=== PATIENT | female | born 1985 | race Caucasian/White ===

== ENCOUNTER 2016-09-02 15:37 | Emergency (ER) | payer OTHER ==
[2016-09-02 15:49] VITALS: BP 135/72; PULSE 86; TEMP 98; BMI 27.4
--- NOTE | 2016-09-02 16:01 | PDOC ---
History of Present Illness - General Chief Complaint: Back Pain Stated Complaint: RT ARM PAIN Time Seen by Provider: 09/02/16 15:56 History Source: Patient - History of Present Illness Occurred: reports: other Severity: reports: severe Upper Extremity Pain Location: right: arm, shoulder Past History - Past Medical History Allergies/Adverse Reactions: Allergies Allergy/AdvReac Type Severity Reaction Status Date / Time No Known Allergies Allergy Verified 09/02/16 15:46 Home Medications: Ambulatory Orders Tramadol HCl 50 mg PO Q6H #12 tablet MDD 200 mg 09/02/16 HTN: Yes (Borderline) HIV: Yes - Psycho/Social/Smoking Cessation Hx Anxiety: No Suicidal Ideation: No Smoking History: Unknown if ever smoked Have you smoked in the past 12 months: No Number of Cigarettes Smoked Daily: 6 Cigars Per Day: 0 Information on smoking cessation initiated: No 'Breaking Loose' booklet given: 04/21/16 Hx Alcohol Use: No Drug/Substance Use Hx: No Substance Use Type: None Review of Systems - Review of Systems Constitutional: No: Chills, Fever Respiratory: No: Shortness of Breath Cardiac (ROS): Yes: Chest Pain. No: Palpitations Integumentary: No: Erythema *Physical Exam - Vital Signs Last Vital Signs Temp Pulse Resp BP Pulse Ox 98 F 86 18 135/72 100 09/02/16 15:46 09/02/16 15:46 09/02/16 15:46 09/02/16 15:46 09/02/16 15:46 - Physical Exam General Appearance: Yes: Appropriately Dressed, Moderate Distress Neck: positive: Supple Respiratory/Chest: positive: Chest Tender (to R upper chest), Lungs Clear, Normal Breath Sounds. negative: Respiratory Distress Cardiovascular: positive: Regular Rate, S1, S2 Extremity: positive: Tender (to volar apect of R 5th digit w/ decreased sensation that extends to distal aspect of hypothenar emeninece, unable to flex digit, no erythma/streaking) Integumentary: positive: Dry, Warm Neurologic: positive: Fully Oriented, Alert, Normal Mood/Affect ED Treatment Course - LABORATORY CBC & Chemistry Diagram: 09/02/16 16:00 Medical Decision Making - Medical Decision Making 09/02/16 16:01 30 yo F, smoker, p/w RUE pain. Pt reports that she sustained a laceration to volar aspect of R 5th digit 1 month ago but did not seek medical care as she hates hospitals. States wound healed but has had persistent pain to digit that extended to palm and wrist 2 weeks ago and now radiating to right arm and chest. Describes pain as tight and constant with an intensity of 8 out of 10. No erythema to skin and no fever or chills. Has not taken anything for pain. No trauma to arm/shoulder otherwise. Did fly back and forth to [place] last week but states CP started prior to travel. No sob, palpitations, leg pain or swelling. See exam RUE/chest pain Pt appears very uncomfortable w/ ttp to medial R arm/upper chest and LROM to RUE 2/2 pain Sustained lac to R 5th digit 1 month ago w/ e/o tendon injury on exam now ( persistent pain w/ loss of flexion and numbness, did not seek medical treatment after injury), no streaking up arm to suspect infxn at this time R shoulder/chest pain possibly MSK, possible radiation from tendon injury -pain control -labs/ekg/cxr given level of pain -reassess -anticipate discharge w/ hand f/u 09/02/16 16:40 09/02/16 16:44 09/02/16 16:56 09/02/16 17:57 Labs/ekg/cxr negative. Pt better w/ meds. Will dc w/ f/u with hand specialist *DC/Admit/Observation/Transfer Diagnosis at time of Disposition: Right arm pain - Discharge Dispostion Disposition: HOME Condition at time of disposition: Improved - Prescriptions Prescriptions: Tramadol HCl 50 mg PO Q6H #12 tablet MDD 200 mg - Referrals Referrals: Laura Mckeon MD [Primary Care Provider] - Fausto Carter MD [Staff Physician] - - Patient Instructions Printed Discharge Instructions: DI for Arm Pain Additional Instructions: The cause of your pain is either muscular or related to your tendon injury a month ago. Take medications as directed and follow-up with Dr. aCrter, of plastic surgery.
[2016-09-02] MEDS ORDERED: IBUPROFEN 400 MG TABLET (FP) PO ONE ×2 (16:26→16:47)
[2016-09-02 16:47] LABS: BASOPHIL 0.6 % (0-2.0); EOSINOPHIL 2.4 % (0-4.5); MCH 31.9 pg (25.7-33.7); MCHC 34.2 g/dl (32.0-36.0); MEAN CELL VOLUME 93.3 fl (80-96); MEAN PLT VOLUME 9.7 fl (7.5-11.1); NEUTROPHILS 48.8 % (42.8-82.8); PLATELET COUNT 188 K/MM3 (134-434); RDW 12.6 % (11.6-15.6); WHITE BLOOD COUNT 5.9 K/mm3 (4.0-10.0)
[2016-09-02 17:04] LABS: URINE APPEARANCE CLEAR; URINE BILIRUBIN NEGATIVE (NEGATIVE); URINE BLOOD NEGATIVE (NEGATIVE); URINE COLOR STRAW; URINE GLUCOSE (UA) NEGATIVE (NEGATIVE); URINE KETONE NEGATIVE (NEGATIVE); URINE LEUK ESTERASE NEGATIVE (NEGATIVE); URINE NITRITE NEGATIVE (NEGATIVE); URINE PROTEIN NEGATIVE (NEGATIVE); URINE UROBILINOGEN NEGATIVE E.U./dl (0.2-1.0)
[2016-09-02] MEDS ORDERED: traMADol HCL 50 MG TABLET ONE (17:28)
[2016-09-02] MEDS ORDERED: traMADol HCL 50 MG TABLET PO ONE (17:43)
--- NOTE | 2016-09-03 13:34 | EKG ---
Test Reason : Blood Pressure : / mmHG Vent. Rate : 068 BPM Atrial Rate : 068 BPM P-R Int : 168 ms QRS Dur : 100 ms QT Int : 402 ms P-R-T Axes : 048 036 036 degrees QTc Int : 427 ms NORMAL SINUS RHYTHM NONSPECIFIC T WAVE ABNORMALITY ABNORMAL ECG WHEN COMPARED WITH ECG OF 21-APR-2016 12:22, NO SIGNIFICANT CHANGE WAS FOUND Confirmed by GARETH MONTELONGO MD ([id number]) on 09/03/2016 1:33:36 PM Referred By: DONIS Confirmed By:GARETH MONTELONGO MD
== END 2016-09-02 17:47 | disposition home or self-care (01) ==
LOC: JERFT 15:37
DX: M79.604 Pain in right leg (principal); I10 Essential (primary) hypertension; Z22.1 Carrier of other intestinal infectious diseases
CPT/HCPCS: 36415; 71020-TC; 81003; 84703; 85025; 85379; 87491; 87591; 93005; 93010; 99281-25

== ENCOUNTER 2017-02-06 21:23 | Emergency (ER) | payer SELFPAY ==
[2017-02-06 21:30] VITALS: BP 100/77; PULSE 105; TEMP 98.5; BMI 26.5
--- NOTE | 2017-02-06 21:39 | PDOC ---
Attending Attestation - Resident Resident Name: Radha Padilla - HPI HPI: 02/07/17 00:26 Pt presents to the ED complaining of a two day history of RLQ pain. Also has vaginal spotting which started today. Denies nausea, vomiting or fever. Denies urinary complaints. - Physicial Exam PE: 02/07/17 00:28 agree with resident's exam. Patient is mildly tender to deep palpation, worse in the RUQ. - Medical Decision Making 02/07/17 00:29 Pt presents to the ED complaining of abdominal pain and vaginal spotting. Concern for bilary disease, ectopic , less likely pancreatitis. plan was to check labs and RUQ US, but patient needed to leave to care for her two year old daughter. Patient signed out AMA. understood the risks of leaving AMA , including abdominal bleeding or severe infection and .
--- NOTE | 2017-02-06 22:42 | PDOC ---
History of Present Illness - General Chief Complaint: Pain, Acute Stated Complaint: PAIN, ACUTE Time Seen by Provider: 02/06/17 21:33 History Source: Patient Exam Limitations: No Limitations - History of Present Illness Initial Comments: This is a 31 yo female with h/o HTN and 2 years ago who presents c/o right lower abdominal pain and bright red vaginal spotting. The first time she noticed this pain was actually 3 months ago and it was mild and fleeting at the time, but in the past two days has become constant and up to 10/10. She describes it as a tightness with sharper twinges of pain, radiating to the mid- back with left side worse than right, and worsening with movement and breathing. It has generally been worsening over the past two days. She additionally notes headache behind her left eye and mild shortness of breath. She denies fever, chills, nausea, vomiting, constipation, dizziness, chest pain , dysuria, vaginal discharge, or concern for STD. She has been monogamous with her of 5 years. She has taken no medications for her symptoms and has not had pain like this in the past. She denies any chance that she may be . Past History - Past Medical History Allergies/Adverse Reactions: Allergies Allergy/AdvReac Type Severity Reaction Status Date / Time No Known Allergies Allergy Verified 02/07/17 12:35 Home Medications: Ambulatory Orders NK [No Known Home Medication] 02/06/17 HTN: Yes (Borderline) HIV: Yes - Psycho/Social/Smoking Cessation Hx Anxiety: No Suicidal Ideation: No Smoking History: Current every day smoker Have you smoked in the past 12 months: Yes Number of Cigarettes Smoked Daily: 6 Cigars Per Day: 0 Information on smoking cessation initiated: No 'Breaking Loose' booklet given: 04/21/16 Hx Alcohol Use: No Drug/Substance Use Hx: No Substance Use Type: None Review of Systems - Review of Systems Constitutional: No: Chills, Fever, Unexplained wgt Loss HEENTM: No: Nose Congestion, Throat Pain Respiratory: Yes: Shortness of Breath (mild). No: Cough Cardiac (ROS): No: Chest Pain, Palpitations ABD/GI: Yes: Other (right abdominal pain). No: Constipated, Diarrhea, Nausea, Vomiting : Yes: Other (vaginal spotting). No: Burning, Dysuria Musculoskeletal: Yes: Back Pain. No: Neck Pain Integumentary: No: Bruising, Rash Neurological: Yes: Headache. No: Numbness, Tingling, Weakness, Dizziness Endocrine: No: Unexplained Weight Gain, Unexplained Weight Loss *Physical Exam - Vital Signs Last Vital Signs Temp Pulse Resp BP Pulse Ox 98.5 F 105 H 18 100/77 100 02/06/17 21:26 02/06/17 21:26 02/06/17 21:26 02/06/17 21:26 02/06/17 21:26 - Physical Exam General Appearance: Yes: Nourished, Appropriately Dressed, Mild Distress, Other (appears anxious and uncomfortable, standing and walking in exam room for the duration of the interview, pleasant and conversive and answering questions appropriately, nontoxic appearing) HEENT: positive: EOMI, Normal Voice, Hearing Grossly Normal. negative: Scleral Icterus (R), Scleral Icterus (L), Nasal Congestion Neck: positive: Trachea midline, Supple. negative: Tender, Rigid Respiratory/Chest: positive: Lungs Clear, Normal Breath Sounds. negative: Respiratory Distress, Crackles, Rhonchi, Stridor, Wheezing Cardiovascular: positive: Regular Rhythm, Regular Rate. negative: Murmur Female Pelvic Exam: positive: normal external exam, cervical os closed, normal adnexa, vaginal bleeding (small amount of bright red blood), other (on bimanual exam the patient notes increased pain to the right umbilical region and superior RLQ). negative: CMT, discharge Gastrointestinal/Abdominal: positive: Normal Bowel Sounds, Tender (right lower quadrant and right umbilical tenderness to palpation, tenderness to McBurney's point, +Rovsing sign, + Desir's sign), Soft. negative: Organomegaly, Pulsatile Mass, Guarding Musculoskeletal: positive: Normal Inspection. negative: Decreased Range of Motion, Vertebral Tenderness Extremity: positive: Normal Capillary Refill, Normal Inspection, Normal Range of Motion. negative: Tender, Cyanosis Integumentary: positive: Normal Color, Dry, Warm. 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 Exam with RLQ and RUQ ttp and pelvic without CMT, small amt of blood. DDX includes cholecystitis, pancreatitis, appendicitis, renal stone, ectopic, endometriosis, ruptures ovarian cyst. Ordered is serum preg, CBCD, CMP, lipase, cervical swab for GC chlam. Lab work unremarkable. Pt with better localization of RUQ abdominal pain on re- exam. US abdomen recommended to her but the patient states she wants to leave d/t childcare concerns. She is counseled on risks of leaving AMA and remains adamant she wants to leave. Pt signs out AMA and is counseled to return [facility] for further workup. *DC/Admit/Observation/Transfer Diagnosis at time of Disposition: Abdominal pain - Discharge Dispostion Disposition: AGAINST MEDICAL ADVICE
[2017-02-06 22:58] LABS: URINE APPEARANCE CLEAR; URINE BILIRUBIN NEGATIVE (NEGATIVE); URINE BLOOD NEGATIVE (NEGATIVE); URINE COLOR LTYELLOW; URINE GLUCOSE (UA) NEGATIVE (NEGATIVE); URINE KETONE NEGATIVE (NEGATIVE); URINE LEUK ESTERASE NEGATIVE (NEGATIVE); URINE NITRITE NEGATIVE (NEGATIVE); URINE PROTEIN NEGATIVE (NEGATIVE); URINE UROBILINOGEN NEGATIVE mg/dL (0.2-1.0)
[2017-02-06 23:22] LABS: BASOPHIL 0.8 % (0-2.0); EOSINOPHIL 3.2 % (0-4.5); MCH 32.3 pg (25.7-33.7); MCHC 34.2 g/dl (32.0-36.0); MEAN CELL VOLUME 94.5 fl (80-96); MEAN PLT VOLUME 9.3 fl (7.5-11.1); NEUTROPHILS 46.7 % (42.8-82.8); PLATELET COUNT 204 K/MM3 (134-434); RDW 12.4 % (11.6-15.6); WHITE BLOOD COUNT 7.2 K/mm3 (4.0-10.0)
[2017-02-06 23:46] LABS: ALBUMIN 4.1 g/dl (3.4-5.0); ALK PHOS 64 U/L (45-117); ANION GAP 7 (8-16); BILIRUBIN,TOTAL 0.3 mg/dL (0.2-1.0); CALCIUM 9.2 mg/dL (8.5-10.1); CO2 28 mmol/L (21-32); CREATININE 0.6 mg/dL (0.55-1.02); GLUCOSE,RANDOM 87 mg/dL (74-106); SGOT/AST 20 U/L (15-37); SGPT/ALT 35 U/L (12-78); TOT PROT 7.2 g/dl (6.4-8.2)
== END 2017-02-07 01:42 | disposition left against medical advice (07) ==
LOC: JER 21:23
DX: R10.31 Right lower quadrant pain (principal)
CPT/HCPCS: 36415; 80053; 81003; 84703; 85025; 87086; 87491; 87591; 99282-25

== ENCOUNTER 2017-02-07 12:31 | Emergency (ER) | payer SELFPAY ==
[2017-02-07 12:36] VITALS: TEMP 98.6; BMI 26.5
[2017-02-07] MEDS ORDERED: morphine CARPU-JECT 4 MG/1 ML DISP.SYRIN IVPUSH ONE (12:57)
[2017-02-07] MEDS ORDERED: ONDANSETRON 4 MG/2 ML VIAL IVPUSH ONE (12:57)
[2017-02-07] MEDS ORDERED: SODIUM CHLORIDE 1,000 ML IV STA (12:57)
[2017-02-07] MEDS ORDERED: morphine CARPU-JECT 2 MG/1 ML DISP.SYRIN ONE (13:08)
[2017-02-07] MEDS ORDERED: ONDANSETRON 4 MG/2 ML VIAL ONE (13:09)
--- NOTE | 2017-02-07 13:12 | PDOC ---
History of Present Illness - General Chief Complaint: Vaginal Bleeding Stated Complaint: VAGINAL BLEEDING, ABD PAIN, VOMITING Time Seen by Provider: 02/07/17 12:37 History Source: Patient Exam Limitations: No Limitations - History of Present Illness Initial Comments: 02/07/17 13:07 31F here today complaining of RUQ abdominal pain worsening in the past week. 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 At that visit lab work showed no white count, no abnormalities on her CMP, no anemia, no , and no UTI. Pelvic exam showed a small amount of blood, no discharge, no masses and no cervical motion tenderness. She endorses associated shortness of breath secondary to abdominal pain. She also endorses associated diarrhea, nausea, and vomiting. She denies blood in her vomit and stool. She states that the car ride was very painful, with every bump in the road causing pain. She states that she is in a monogamous relationship with her . Past History - Past Medical History Allergies/Adverse Reactions: Allergies Allergy/AdvReac Type Severity Reaction Status Date / Time No Known Allergies Allergy Verified 02/07/17 12:35 Home Medications: Ambulatory Orders NK [No Known Home Medication] 02/06/17 HTN: Yes (Borderline) HIV: Yes - Psycho/Social/Smoking Cessation Hx Anxiety: No Suicidal Ideation: No Smoking History: Current every day smoker Have you smoked in the past 12 months: Yes Number of Cigarettes Smoked Daily: 20 Cigars Per Day: 0 Information on smoking cessation initiated: Yes 'Breaking Loose' booklet given: 02/07/17 Hx Alcohol Use: No Drug/Substance Use Hx: No Substance Use Type: None Review of Systems - Review of Systems Comments:: 02/07/17 13:23 GENERAL/CONSTITUTIONAL: No fever or chills. No weakness. HEAD, EYES, EARS, NOSE AND THROAT: No change in vision. No ear pain or discharge. No sore throat. CARDIOVASCULAR: No chest pain. Positive for shortness of breath RESPIRATORY: No cough, wheezing, or hemoptysis. GASTROINTESTINAL: Positive for nausea, vomiting, and diarrhea GENITOURINARY: No dysuria, frequency, or change in urination. SKIN: No rash NEUROLOGIC: No headache, vertigo, loss of consciousness, or change in strength/ sensation. HEMATOLOGIC/LYMPHATIC: No anemia, easy bleeding, or history of blood clots. ALLERGIC/IMMUNOLOGIC: No hives or skin allergy. *Physical Exam - Vital Signs Last Vital Signs Temp Pulse Resp BP Pulse Ox 98.6 F 98 H 19 113/79 98 02/07/17 12:34 02/07/17 12:34 02/07/17 12:34 02/07/17 12:34 02/07/17 12:34 - Physical Exam Comments: 02/07/17 13:24 GENERAL: Awake, alert, and fully oriented, in moderate distress HEAD: No signs of trauma, normocephalic, atraumatic EYES: PERRLA, EOMI, sclera anicteric, conjunctiva clear ENT: Auricles normal inspection, hearing grossly normal, nares patent, oropharynx clear without exudates. Dry mucosa LUNGS: No distress, speaks full sentences, clear to auscultation bilaterally HEART: Regular rate and rhythm, normal S1 and S2, no murmurs, rubs or gallops, peripheral pulses normal and equal bilaterally. ABDOMEN: RUQ tenderness, positive rubin sign, no rebound. No guarding. No masses EXTREMITIES: Normal inspection, Normal range of motion, no edema. No clubbing or cyanosis. NEUROLOGICAL: Cranial nerves II through XII grossly intact. Normal speech, no focal sensorimotor deficits SKIN: Warm, Dry, normal turgor, no rashes or lesions noted. ED Treatment Course - RADIOLOGY Radiology Studies Ordered: Category Date Time Status ABDOMEN US -LIMITED [US] Stat Ultrasound 02/07/17 12:58 Ordered TRANSVAGINAL ULTRASOUND US [US] Stat Ultrasound 02/07/17 13:05 Ordered Medical Decision Making - Medical Decision Making 02/07/17 13:25 Patient is a 31F with history of HTN and preeclampsia here today with RUQ abdominal pain. Full laboratory workup done yesterday. Vital signs stable and normal. Differential diagnosis includes, but is not limited to: cholecystitis, cholelithiasis, choledocholithiasis, ovarian cyst, and renal colic. Believe small amounts of vaginal bleeding plus obesity and age is PCOS. No need to repeat lab work. Will do abdominal ultrasound and transvaginal ultrasound to evaluate. Will treat with 1L ns, zofran, morphine. 02/07/17 16:05 RUQ and transvaginal ultrasound shows no abnormalities. Patient still in pain, but wants to eat. Holding PO, doing CT w/ IV contrast. 02/07/17 20:59 CT shows bilateral kidney stones and hepatic steatosis. Abdominal pain improved , passed PO challenge. Given referral to PCP, told to follow up on CT results. Patient alert, ambulatory and improved. Discharged with return precautions. *DC/Admit/Observation/Transfer Diagnosis at time of Disposition: Renal colic - Discharge Dispostion Disposition: HOME Condition at time of disposition: Good Admit: No - Referrals Referrals: Colby Musa MD [Staff Physician] - - Patient Instructions Printed Discharge Instructions: Kidney Stones -- Adult
--- NOTE | 2017-02-07 13:46 | PDOC ---
Attending Attestation - Resident Resident Name: Kofi Dee - ED Attending Attestation I have performed the following: I have examined & evaluated the patient, The case was reviewed & discussed with the resident, I agree w/resident's findings & plan, Exceptions are as noted - HPI HPI: 02/07/17 13:41 25-year-old female with past medical history of hypertension presents back to the ED for abdominal pain. Patient is here with 2 complains. She was initially seen here yesterday for persistent vaginal bleeding since January 16 and right upper quadrant pain. Patient reports that she's been having intermittent right upper quadrant pain for several weeks. Unclear if it is worse with food or eating. Has developed with nausea or vomiting. Denies dysuria. Patient also reports that she's been having vaginal bleeding but no lower abdominal pain. Patient is not on oral contraceptive pills. The patient has had blood, urine and a urine test done which was negative. However, the patient left AGAINST MEDICAL ADVICE given that she had to drop her daughter off at home. Patient continued to have persistent pain and came to the ED. We'll obtain a right upper quadrant ultrasound to rule out acute cholecystitis or bili colic. We'll also obtain a transvaginal ultrasound. Differential includes fibroids versus dysfunctional uterine bleeding. If workup is negative, we'll consider spiral CT to rule out renal colic. - Physicial Exam PE: 02/08/17 11:04 GENERAL: Awake, alert, and fully oriented, in no acute distress. HEAD: No signs of trauma EYES: PERRLA, EOMI, sclera anicteric, conjunctiva clear ENT: Auricles normal inspection, hearing grossly normal, nares patent, oropharynx clear without exudates. NECK: Normal ROM, supple, no lymphadenopathy, JVD, or masses LUNGS: Breath sounds equal, clear to auscultation bilaterally. No wheezes, and no crackles HEART: Regular rate and rhythm, normal S1 and S2, no murmurs, rubs or gallops ABDOMEN: TTP RUQ. Desir sign positive. Soft, normoactive bowel sounds. No guarding, no rebound. No masses BACK: +R sided CVA tenderness EXTREMITIES: Normal range of motion, no edema. No clubbing or cyanosis. No cords, erythema, or tenderness NEUROLOGICAL: Cranial nerves II through XII grossly intact. Normal speech, normal gait SKIN: Warm, Dry, normal turgor, no rashes or lesions noted. - Medical Decision Making 02/07/17 15:39 Transvaginal ultrasound and abdominal ultrasound negative. Will reassess the patient. if the pain is improved, will d/c patient with PMD followup. Otherwise, will perform a spiral CT. Regarding the vaginal bleeding, given the negative transvaginal ultrasound, patient with likely dysfunctional uterine bleeding. Will have patient follow up with sales force administrator for potential OCPs.
[2017-02-07 19:13] VITALS: BP 131/77; PULSE 56
== END 2017-02-07 19:13 | disposition home or self-care (01) ==
LOC: JER 12:31
PROC: 3E033NZ Introduction of Analgesics, Hypnotics, Sedatives into Peripheral Vein, Percutaneous Approach (ICD-10-PCS; principal; 2017-02-07)
PROC: 3E033GC Introduction of Other Therapeutic Substance into Peripheral Vein, Percutaneous Approach (ICD-10-PCS; 2017-02-07)
DX: N20.0 Calculus of kidney (principal); I10 Essential (primary) hypertension; Z21 Asymptomatic human immunodeficiency virus [HIV] infection status
CPT/HCPCS: 74177-TC; 76705-TC; 76830-TC; 84703; 99283-25

== ENCOUNTER 2017-05-02 21:49 | Emergency (ER) | payer SELFPAY ==
[2017-05-02 22:15] VITALS: BP 128/70; PULSE 78; TEMP 98.5; BMI 27.8
--- NOTE | 2017-05-02 23:33 | PDOC ---
History of Present Illness <Sahil Guevara - Last Filed: 05/02/17 23:33> - General History Source: Patient Exam Limitations: No Limitations - History of Present Illness Initial Comments: 05/03/17 01:57 "Patient is a 31 year old female with no significant past medical history presents to the ED complaining of missed period as well as cough. She reports her last period was March 19 and lasted 4 days, and has been absent since..The patient reports an ED visit in February for her period lasting two weeks. She also complains of back pain and dry throat secondary to her cough. She denies any abdominal pain, spotting or vaginal discharge. She denies nausea, vomiting, fever, chills. She denies use of control. " <Jessie Wang - Last Filed: 05/03/17 01:58> - General Chief Complaint: Cold Symptoms Stated Complaint: FATIGUE Time Seen by Provider: 05/02/17 23:09 Past History - Past Medical History COPD: No HTN: Yes (Borderline) - Suicide/Smoking/Psychosocial Hx Smoking History: Current every day smoker Have you smoked in the past 12 months: Yes Number of Cigarettes Smoked Daily: 5 Cigars Per Day: 0 Information on smoking cessation initiated: No 'Breaking Loose' booklet given: 02/07/17 Hx Alcohol Use: No Drug/Substance Use Hx: No Substance Use Type: None <PaolaSahil - Last Filed: 05/02/17 23:33> <[email or web address] - Last Filed: 05/03/17 01:58> - Past Medical History Allergies/Adverse Reactions: Allergies Allergy/AdvReac Type Severity Reaction Status Date / Time No Known Allergies Allergy Verified 05/02/17 22:08 Home Medications: Ambulatory Orders NK [No Known Home Medication] 02/06/17 Review of Systems - Review of Systems Able to Perform ROS?: Yes Comments:: 05/03/17 01:57 "CONSTITUTIONAL: No reported: Fever, Chills, Diaphoresis, Generalized Weakness, Malaise, Loss of Appetite HEENT: No reported: Rhinorrhea, Nasal Congestion, Throat Pain, Throat Swelling, Difficulty Swallowing, Mouth Swelling, Ear Pain, Eye Pain, Visual Changes CARDIOVASCULAR: No reported: Chest Pain, Syncope, Palpitations, Irregular Heart Rate, Lightheadedness, Peripheral Edema RESPIRATORY: +Cough No reported: Shortness of Breath, SOB with Exertion, Orthopnea, Wheezing, Stridor, Hemoptysis GASTROINTESTINAL: No reported: Abdominal pain, Abdominal Distension, Nausea, Vomiting, Diarrhea, Constipation, Melena, Hematochezia GENITOURINARY: No reported: Dysuria, Frequency, Urgency, Hesitancy, Flank Pain, Genital Pain MUSCULOSKELETAL: No reported: Myalgia, Arthralgia, Joint Swelling, Neck Pain SKIN: No reported: Rash, Itching, Pallor HEMEATOLOGIC/IMMUNOLOGIC: No reported: Easy Bleeding, Easy Bruising, Lymphadenopathy, Frequent infections ENDOCRINE: No reported: Unexplained Weight Gain, Unexplained Weight Loss, Heat Intolerance , Cold Intolerance NEUROLOGIC: No reported: Headache, Focal Weakness, Paresthesias, Vertigo, Lightheadedness, Unsteady Gait, Seizure, Mental Status Changes, Incontinence PSYCHIATRIC: No reported: Anxiety, Depression " All Other Systems: Reviewed and Negative <Jessie Wang - Last Filed: 05/03/17 01:58> *Physical Exam - Vital Signs Last Vital Signs Temp Pulse Resp BP Pulse Ox 98.5 F 78 16 128/70 99 05/02/17 22:12 05/02/17 22:12 05/02/17 22:12 05/02/17 22:12 05/02/17 22:12 <Sahil Guevara - Last Filed: 05/02/17 23:33> - Vital Signs Last Vital Signs Temp Pulse Resp BP Pulse Ox 98.5 F 78 16 128/70 99 05/02/17 22:12 05/02/17 22:12 05/02/17 22:12 05/02/17 22:12 05/02/17 22:12 - Physical Exam Comments: 05/03/17 01:58 "GENERAL: The patient is awake, alert, and fully oriented, Nontoxic - in no acute distress. HEAD: Normocephalic, atraumatic. EYES: extraocular movements intact, sclera anicteric, conjunctiva clear. ENT: Normal voice, Moist mucous membranes. NECK: Normal range of motion, supple LUNGS: Breath sounds equal, clear to auscultation bilaterally. No wheezes, no rhonchi, no rales. HEART: Regular rate and rhythm, without murmur, rub or gallop. ABDOMEN: Soft, nontender, normoactive bowel sounds. No guarding, no rebound.No CVA tenderness EXTREMITIES: Normal range of motion, no edema. No clubbing or cyanosis. No cords , erythema, or tenderness. NEUROLOGICAL: No facial assymetry, Normal speech, PSYCH: Normal mood, normal affect. SKIN: Warm, Dry, normal turgor, " <Jessie Wang - Last Filed: 05/03/17 01:58> ED Treatment Course - ADDITIONAL ORDERS Additional order review: Laboratory Results 05/02/17 22:20 Urine HCG, Qual Negative <Sahil Guevara - Last Filed: 05/02/17 23:33> - ADDITIONAL ORDERS Additional order review: Laboratory Results 05/02/17 22:20 Urine HCG, Qual Negative <Jessie Wang - Last Filed: 05/03/17 01:58> Medical Decision Making - Medical Decision Making 05/02/17 23:30 31y F presents with missing her period since mar 19, no abd pain/ crapmping/back pain, vag bleeding. pt also complaining of mild dry cough an dsore throat w/o fever/chills starting today. no cp, dpe, hempoptysis, not on ocp pts abd exam unremarkble vitals normal lungs clear u hcg negative will dc the pt with pmd fu supportive care at home I discussed the physical exam findings, ancillary test results and final diagnoses with the patient. I answered all of the patient's questions. The patient was satisfied with the care received and felt comfortable with the discharge plan and treatment plan. The patient will call their primary care physician within 24 hours to arrange follow-up and will return to the Emergency Department with any new, persistent or worsening symptoms. <Sahil Guevara - Last Filed: 05/02/17 23:33> *DC/Admit/Observation/Transfer - Discharge Dispostion Admit: No <Sahil Guevara - Last Filed: 05/02/17 23:33> - Attestations Scribe Attestion: 05/03/17 01:58 Documentation prepared by Jessie Wang, acting as medical art therapist for Sahil Guevara MD. <Jessie Wang - Last Filed: 05/03/17 01:58> Diagnosis at time of Disposition: Menstrual periods irregular URI (upper respiratory infection) Qualifiers: URI type: unspecified URI Qualified Code(s): J06.9 - Acute upper respiratory infection, unspecified - Discharge Dispostion Disposition: HOME Condition at time of disposition: Improved - Referrals Referrals: Martínez Valentin MD [Staff Physician] - - Patient Instructions Printed Discharge Instructions: DI for Viral Upper Respiratory Infection -- Adult Additional Instructions: Make sure you're taking lots of fluids, for your sore throat you may take some Tylenol or Motrin. Follow-up with your oncologist for further evaluation of your abnormal periods. Print Language: CROATIAN
== END 2017-05-02 23:52 | disposition home or self-care (01) ==
LOC: JER 21:49
DX: N92.6 Irregular menstruation, unspecified (principal); J06.9 Acute upper respiratory infection, unspecified
CPT/HCPCS: 84703; 99282-25

== ENCOUNTER 2017-06-19 12:55 | Emergency (ER) | payer OTHER ==
[2017-06-19 13:02] VITALS: BP 113/73; PULSE 102; TEMP 98.4; BMI 26.4
[2017-06-19] MEDS ORDERED: morphine CARPU-JECT 4 MG/1 ML DISP.SYRIN IVPUSH ONE (13:53)
[2017-06-19] MEDS ORDERED: morphine SULFATE 4 MG/ML VIAL IVPUSH ONE (13:56)
[2017-06-19] MEDS ORDERED: morphine CARPU-JECT 10 MG/1 ML DISP.SYRIN ONE (14:27)
[2017-06-19 14:34] LABS: BASO % 0.6 % (0-2.0); HEMATOCRIT 41.5 % (32.4-45.2); HEMOGLOBIN 13.7 GM/dL (10.7-15.3); LYMPH % 36.7 % (8-40); MCH 31.4 pg (25.7-33.7); MCHC 33.1 g/dl (32.0-36.0); MEAN PLT VOLUME 9.6 fl (7.5-11.1); MONO % 6.5 % (3.8-10.2); NEUT % 54.2 % (42.8-82.8); PLATELET COUNT 192 K/MM3 (134-434); RBC 4.37 M/mm3 (3.60-5.2); RDW 12.2 % (11.6-15.6); WHITE BLOOD COUNT 6.3 K/mm3 (4.0-10.0)
[2017-06-19 14:50] LABS: INR 1.04 (0.82-1.09); PROTHROMBIN TIME (PATIENT) 11.7 SEC (9.98-11.88)
--- NOTE | 2017-06-19 14:50 | PDOC ---
Attending Attestation - Resident Resident Name: Elvin Troncoso - ED Attending Attestation I have performed the following: I have examined & evaluated the patient, The case was reviewed & discussed with the resident, I agree w/resident's findings & plan, Exceptions are as noted - HPI HPI: 06/19/17 14:48 Healthy 31-year-old female with no severe past medical or surgical history, LMP about 2 weeks ago presents with progressive lower abdominal/right pelvic pain since last night. Patient had episode of nausea/vomiting times one yesterday associated with some anorexia, during the night developed some periumbilical pain that culminated around 6 AM with severe right pelvic pain. No bleeding or cramping, no urinary complaints. - Physicial Exam PE: 06/19/17 14:48 Vital signs normal, urine pending. Well-appearing Abdomen is soft/nondistended. Tender with guarding in the right lower quadrant/ pelvis below McBurney's point, positive rebound to that area. No CVA tenderness - Medical Decision Making 06/19/17 14:50 Patient seen and evaluated with the resident. I agree with the overall evaluation, assessment, and management with the following summary of visit: 31-year-old female with progressive right lower quadrant/pelvic pain since this morning, single episode of nausea/vomiting yesterday. No fevers or chills, no urinary complaints. Rule out /ectopic, could be more consistent with ovarian cyst/rupture, rule out torsion. Rule out appendicitis. Labs, urinalysis Pain control Pelvic ultrasound, CT of the abdomen and pelvis if ultrasound unremarkable Reassess
[2017-06-19 14:59] LABS: ALBUMIN 3.7 g/dl (3.4-5.0); ANION GAP 7 (8-16); BLOOD UREA NITROGEN 6 mg/dL (7-18); CALCIUM 8.8 mg/dL (8.5-10.1); CHLORIDE 103 mmol/L (98-107); CO2 30 mmol/L (21-32); CREATININE 0.4 mg/dL (0.55-1.02); GLUCOSE,RANDOM 82 mg/dL (74-106); SGPT/ALT 22 U/L (12-78); SODIUM 140 mmol/L (136-145)
[2017-06-19 15:03] LABS: ALK PHOS 58 U/L (45-117); BILIRUBIN,TOTAL 0.3 mg/dL (0.2-1.0); TOT PROT 7.1 g/dl (6.4-8.2)
[2017-06-19 15:05] LABS: POTASSIUM 4.2 mmol/L (3.5-5.1); SGOT/AST 23 U/L (15-37)
--- NOTE | 2017-06-19 15:19 | PDOC ---
History of Present Illness - General Chief Complaint: Pain Stated Complaint: PAIN, ACUTE Time Seen by Provider: 06/19/17 13:30 History Source: Patient Exam Limitations: No Limitations - History of Present Illness Initial Comments: 06/19/17 15:12 31F with no significant pmh presents to the ED with LRQ pain since 6am. The pain is 10/10 but started around the umbilical before moving to the lower right quadrant. History of right sided ovarian cyst. Episodes of vomiting yesterday morning, patient then had lunch and dinner and is currently hungry. Last day of last period was June 09. HX of . Pain increased with movement otherwise constant. 06/19/17 15:23 Past History - Past Medical History Allergies/Adverse Reactions: Allergies Allergy/AdvReac Type Severity Reaction Status Date / Time No Known Allergies Allergy Verified 06/19/17 13:02 Home Medications: Ambulatory Orders NK [No Known Home Medication] 02/06/17 COPD: No HTN: Yes (Borderline) - Suicide/Smoking/Psychosocial Hx Smoking History: Current every day smoker Have you smoked in the past 12 months: Yes Number of Cigarettes Smoked Daily: 20 Cigars Per Day: 0 Information on smoking cessation initiated: Yes 'Breaking Loose' booklet given: 02/07/17 Hx Alcohol Use: No Drug/Substance Use Hx: No Substance Use Type: None Review of Systems - Review of Systems Able to Perform ROS?: Yes Is the patient limited [place] proficient: No Constitutional: No: Fever, Loss of Appetite HEENTM: No: Symptoms Reported Respiratory: No: Symptoms reported Cardiac (ROS): No: Symptoms Reported ABD/GI: Yes: See HPI. No: Diarrhea, Difficulty Swallowing, Nausea, Abdominal cramping : No: Symptoms Reported Musculoskeletal: No: Symptoms Reported Integumentary: No: Symptoms Reported Neurological: No: Symptoms reported *Physical Exam - Vital Signs Last Vital Signs Temp Pulse Resp BP Pulse Ox 98.4 F 102 H 19 113/73 97 06/19/17 12:58 06/19/17 12:58 06/19/17 12:58 06/19/17 12:58 06/19/17 12:58 - Physical Exam General Appearance: Yes: Nourished, Obese HEENT: positive: EOMI, IVIS, Normal ENT Inspection Neck: negative: Tender Respiratory/Chest: positive: Lungs Clear, Normal Breath Sounds. negative: Chest Tender, Respiratory Distress Cardiovascular: positive: Regular Rhythm, S1, S2, Tachycardia Gastrointestinal/Abdominal: positive: Normal Bowel Sounds, Tender (lower right quadrant), Protuberent, Rebound. negative: Pulsatile Mass, Guarding Musculoskeletal: positive: Normal Inspection. negative: CVA Tenderness Extremity: positive: Normal Capillary Refill, Normal Inspection, Normal Range of Motion Neurologic: positive: Fully Oriented, Alert, Normal Mood/Affect, Normal Response , Motor Strength 5/5 ED Treatment Course - LABORATORY CBC & Chemistry Diagram: 06/19/17 14:20 06/19/17 14:20 - ADDITIONAL ORDERS Additional order review: Laboratory Results 06/19/17 06/19/17 14:20 14:20 PT with INR 11.70 INR 1.04 Sodium 140 Potassium 4.2 Chloride 103 Carbon Dioxide 30 Anion Gap 7 L BUN 6 L D Creatinine 0.4 L D Creat Clearance w eGFR > 60 Random Glucose 82 Calcium 8.8 Total Bilirubin 0.3 AST 23 ALT 22 D Alkaline Phosphatase 58 Total Protein 7.1 Albumin 3.7 Beta HCG, Quant < 1.0 06/19/17 14:20 RBC 4.37 MCV 95.0 MCHC 33.1 RDW 12.2 MPV 9.6 Neutrophils % 54.2 Lymphocytes % 36.7 Monocytes % 6.5 Eosinophils % 2.0 Basophils % 0.6 - RADIOLOGY Radiology Studies Ordered: Category Date Time Status PELVIS(OTHER) US [US] Stat Ultrasound 06/19/17 15:10 Ordered - Medications Given in the ED: ED Medications Discontinued Medications Generic Name Dose Route Start Last Admin Trade Name Freq PRN Reason Stop Dose Admin Morphine Sulfate 4 mg 06/19/17 13:53 06/19/17 14:32 Morphine Injection - IVPUSH 06/19/17 13:54 4 mg ONCE ONE Administration Morphine Sulfate 4 mg 06/19/17 13:56 06/19/17 14:32 Morphine Sulfate IVPUSH 06/19/17 13:57 Not Given ONCE ONE Medical Decision Making - Medical Decision Making 06/19/17 19:17 31F with no significant pmh presents to the ED with LRQ pain since 6am.. All basic labs WNL. No anorexia, no wbc or fever. Ovarian etiology likelier than appendicitis at this stage. TVUS: No sonographic evidence of ovarian/adnexal pathology. A 1.7 cm subserosal uterine leiomyoma is noted 06/19/17 19:18 Ct abdomen with IV contrast ordered to rule out appendicitis. Patient decided to leave AMA because she has to get her son from daycare before they start charging her. Will come back for her CT tonight around 8pm *DC/Admit/Observation/Transfer Diagnosis at time of Disposition: Lower abdominal pain of unknown etiology - Discharge Dispostion Disposition: AGAINST MEDICAL ADVICE - Referrals - Patient Instructions - Post Discharge Activity
[2017-06-19] MEDS ORDERED: ONDANSETRON 4 MG/2 ML VIAL IVPUSH ONE (16:31)
[2017-06-19 16:41] LABS: URINE APPEARANCE CLOUDY; URINE BILIRUBIN NEGATIVE (NEGATIVE); URINE BLOOD NEGATIVE (NEGATIVE); URINE COLOR YELLOW; URINE GLUCOSE (UA) NEGATIVE (NEGATIVE); URINE KETONE NEGATIVE (NEGATIVE); URINE LEUK ESTERASE NEGATIVE (NEGATIVE); URINE NITRITE NEGATIVE (NEGATIVE); URINE PROTEIN NEGATIVE (NEGATIVE); URINE UROBILINOGEN NEGATIVE mg/dL (0.2-1.0)
[2017-06-19] MEDS ORDERED: ONDANSETRON 4 MG/2 ML VIAL ONE (16:53)
== END 2017-06-19 19:19 | disposition left against medical advice (07) ==
LOC: JER 12:55
PROC: 3E033NZ Introduction of Analgesics, Hypnotics, Sedatives into Peripheral Vein, Percutaneous Approach (ICD-10-PCS; principal; 2017-06-19)
PROC: 3E033GC Introduction of Other Therapeutic Substance into Peripheral Vein, Percutaneous Approach (ICD-10-PCS; 2017-06-19)
DX: D25.9 Leiomyoma of uterus, unspecified (principal)
CPT/HCPCS: 36415; 76856-TC; 80053; 81003; 84702; 85025; 85610; 85730; 86850; 86900; 86901; 99283-25

== ENCOUNTER 2018-02-08 11:57 | Emergency (ER) | payer OTHER ==
[2018-02-08 12:07] VITALS: BP 122/76; PULSE 60; TEMP 99; BMI 26.4
[2018-02-08] MEDS ORDERED: morphine CARPU-JECT 4 MG/1 ML DISP.SYRIN IVPUSH ONE ×2 (12:28→14:09)
[2018-02-08] MEDS ORDERED: ONDANSETRON 4 MG/2 ML VIAL IVPUSH ONE ×2 (12:28→14:18)
[2018-02-08] MEDS ORDERED: ONDANSETRON 4 MG/2 ML VIAL ONE ×2 (12:38→14:22)
[2018-02-08] MEDS ORDERED: morphine SULFATE 4 MG/ML VIAL ONE ×2 (12:38→14:11)
[2018-02-08 13:01] LABS: BASO % 0.8 % (0-2.0); EOS % 3.5 % (0-4.5); HEMATOCRIT 43.5 % (32.4-45.2); HEMOGLOBIN 14.6 GM/dL (10.7-15.3); LYMPH % 37.9 % (8-40); MCH 31.4 pg (25.7-33.7); MCHC 33.6 g/dl (32.0-36.0); MEAN CELL VOLUME 93.4 fl (80-96); MEAN PLT VOLUME 9.2 fl (7.5-11.1); MONO % 7.1 % (3.8-10.2); NEUT % 50.7 % (42.8-82.8); PLATELET COUNT 190 K/MM3 (134-434); RBC 4.66 M/mm3 (3.60-5.2); RDW 13.6 % (11.6-15.6); WHITE BLOOD COUNT 6.2 K/mm3 (4.0-10.0)
[2018-02-08 13:13] LABS: INR 0.96 (0.83-1.09); PROTHROMBIN TIME (PATIENT) 10.8 SEC (9.7-13.0)
[2018-02-08 13:19] LABS: HCG,QUALITATIVE URINE Negative
[2018-02-08 13:25] LABS: ALBUMIN 4.1 g/dl (3.4-5.0); ANION GAP 7 MMOL/L (8-16); BILIRUBIN,TOTAL 0.2 mg/dL (0.2-1.0); BLOOD UREA NITROGEN 12 mg/dL (7-18); CHLORIDE 105 mmol/L (98-107); CO2 29 mmol/L (21-32); CREATININE 0.7 mg/dL (0.55-1.02); GLUCOSE,RANDOM 106 mg/dL (74-106); LIPASE 151 U/L (73-393); POTASSIUM 3.8 mmol/L (3.5-5.1); SGOT/AST 20 U/L (15-37); SGPT/ALT 21 U/L (12-78); SODIUM 141 mmol/L (136-145); TOT PROT 7.6 g/dl (6.4-8.2)
--- NOTE | 2018-02-08 13:25 | PDOC ---
Attending Attestation - Resident Resident Name: Rafy Means - ED Attending Attestation I have performed the following: I have examined & evaluated the patient, The case was reviewed & discussed with the resident, I agree w/resident's findings & plan, Exceptions are as noted - HPI HPI: 02/08/18 13:19 32-year-old female with past medical history of section and abdominoplasty presents with 1 day of right flank pain radiating to the right mid abdomen. Reports some nausea but denies any fevers or chills. Reports of urinary frequency but denies hematuria or dysuria. Did have a prior history of kidney stones many years ago. Last menstrual period approximately 3 weeks ago. - Physicial Exam PE: 02/08/18 13:22 GENERAL: Awake, alert, and fully oriented, in no acute distress HEAD: No signs of trauma EYES: PERRLA, EOMI, sclera anicteric, conjunctiva clear ENT: Auricles normal inspection, hearing grossly normal, nares patent NECK: Normal ROM, supple ABDOMEN: Soft, TTP R mid abd, RLQ, +R CVA tenderness. No guarding, no rebound. No masses EXTREMITIES: Normal range of motion, no edema. No clubbing or cyanosis. No cords, erythema, or tenderness NEUROLOGICAL: Cranial nerves II through XII grossly intact. Normal speech, normal gait SKIN: Warm, Dry, normal turgor, no rashes or lesions noted. - Medical Decision Making 02/08/18 13:25 Vital Signs Temp Pulse Resp BP Pulse Ox 99 F 60 18 122/76 100 02/08/18 12:03 02/08/18 12:03 02/08/18 12:03 02/08/18 12:03 02/08/18 12:03 32-year-old female patient presents with right flank to right mid abdominal pain. Differential includes renal colic, pyelonephritis, cystitis, appendicitis , colitis. We'll obtain labs, urinalysis, urine test and a spiral CT abdomen and pelvis. Reassess. 02/08/18 14:39 CBC, BMP 02/08/18 12:48 02/08/18 12:48 CMP Sodium 141 mmol/L (136-145) 02/08/18 12:48 Potassium 3.8 mmol/L (3.5-5.1) 02/08/18 12:48 Chloride 105 mmol/L (98-107) 02/08/18 12:48 Carbon Dioxide 29 mmol/L (21-32) 02/08/18 12:48 Anion Gap 7 MMOL/L (8-16) L 02/08/18 12:48 BUN 12 mg/dL (7-18) 02/08/18 12:48 Creatinine 0.7 mg/dL (0.55-1.02) 02/08/18 12:48 Creat Clearance w eGFR > 60 (>60) 02/08/18 12:48 Random Glucose 106 mg/dL (74-106) 02/08/18 12:48 Calcium 9.0 mg/dL (8.5-10.1) 02/08/18 12:48 Total Bilirubin 0.2 mg/dL (0.2-1.0) 02/08/18 12:48 AST 20 U/L (15-37) 02/08/18 12:48 ALT 21 U/L (12-78) 02/08/18 12:48 Alkaline Phosphatase 66 U/L (45-117) 02/08/18 12:48 Total Protein 7.6 g/dl (6.4-8.2) 02/08/18 12:48 Albumin 4.1 g/dl (3.4-5.0) 02/08/18 12:48 Lipase 151 U/L (73-393) 02/08/18 12:48 Urine Test Results Urine Color Yellow 02/08/18 12:37 Urine Appearance Cloudy 02/08/18 12:37 Urine pH 6.0 (5.0-8.0) D 02/08/18 12:37 Ur Specific [place] 1.020 (1.001-1.035) 02/08/18 12:37 Urine Protein Negative (NEGATIVE) 02/08/18 12:37 Urine Glucose (UA) Negative (NEGATIVE) 02/08/18 12:37 Urine Ketones Negative (NEGATIVE) 02/08/18 12:37 Urine Blood 3+ (NEGATIVE) H 02/08/18 12:37 Urine Nitrite Negative (NEGATIVE) 02/08/18 12:37 Urine Bilirubin Negative (<2.0 mg/dL) 02/08/18 12:37 Ur Leukocyte Esterase Negative (NEGATIVE) 02/08/18 12:37 Ur Epithelial Cells Many /HPF (FEW) 02/08/18 12:37 Urine Mucus Rare 02/08/18 12:37 CT scan shows moderate right hydronephrosis with right hydroureter. 4.5 x 3 mm x 3.7 obstructing stone in right ureterovesicular junction. No appendicitis. If pt's pain is improved, pt can be discharged on pain medication, flomax and follow up with urology.
[2018-02-08 13:26] LABS: ALK PHOS 66 U/L (45-117)
--- NOTE | 2018-02-08 13:38 | PDOC ---
History of Present Illness - General Chief Complaint: Pain Stated Complaint: ABD PAIN Time Seen by Provider: 02/08/18 12:13 History Source: Patient, Old Records Exam Limitations: No Limitations - History of Present Illness Initial Comments: 32 y/o female presenting to [facility] ER via private auto complaining of acute onset of lower right abdominal pain. Pain started suddenly this morning around 10am after having a reportedly normal bowel movement. Max at onset. Endorses dysuria with symptoms of incomplete voiding since last night. No hematuria. Endorses nausea, vomiting, subjective fever, and diaphoresis. LMP: 19 January 2018. Possibly . Pt is s/p abdominoplasty in in September 2017 and a . Past History - Past Medical History Allergies/Adverse Reactions: Allergies Allergy/AdvReac Type Severity Reaction Status Date / Time No Known Allergies Allergy Verified 02/08/18 12:06 Home Medications: Ambulatory Orders Naproxen 500 mg PO BID PRN #20 tablet 02/08/18 Oxycodone HCl/Acetaminophen [Percocet 5-325 mg Tablet] 1 tab PO Q6H PRN #12 tablet MDD 4 02/08/18 Tamsulosin HCl [Flomax] 0.4 mg PO DAILY #14 cap.er.24h 02/08/18 COPD: No HTN: Yes (Borderline) - Suicide/Smoking/Psychosocial Hx Smoking History: Current every day smoker Have you smoked in the past 12 months: Yes Number of Cigarettes Smoked Daily: 20 Cigars Per Day: 0 Information on smoking cessation initiated: No 'Breaking Loose' booklet given: 02/07/17 Hx Alcohol Use: No Drug/Substance Use Hx: No Substance Use Type: None Review of Systems - Review of Systems Able to Perform ROS?: Yes Is the patient limited Nepali proficient: No Constitutional: Yes: Chills, Diaphoresis, Fever Respiratory: No: Shortness of Breath Cardiac (ROS): No: Chest Pain ABD/GI: Yes: Abd. Pain w/ defecation, Nausea, Vomiting. No: Constipated, Diarrhea, Poor Appetite, Poor Fluid Intake, Rectal Bleeding, Indigestion, Tarry Stools : Yes: Dysuria, Frequency, Pain. No: Hematuria Musculoskeletal: Yes: Back Pain Integumentary: No: Bruising, Rash Hematologic/Lymphatic: No: Easy Bleeding, Easy Bruising *Physical Exam - Vital Signs Last Vital Signs Temp Pulse Resp BP Pulse Ox 99 F 60 18 122/76 100 02/08/18 12:03 02/08/18 12:03 02/08/18 12:03 02/08/18 12:03 02/08/18 12:03 - Physical Exam Comments: Constitutional: Well-developed, well-nourished female in obvious discomfort. Found left lateral decubitus position in hospital bed. Alert and oriented x4. Answered all questions appropriately and completely. Speech was non-labored, non -pressured. HEENT: Normocephalic. No obvious external signs of trauma. Hearing grossly normal. No nasal discharge. Neck is supple, trachea is midline. Cardiovascular: Regular rate and regular rhythm. No murmur, rubs, clicks, or gallops. Peripheral pulses: Radial pulses full. Respiratory: Breathing unlabored. Equal chest rise and fall. Clear to auscultation bilaterally. No stridor, no wheezing, no rhonchi. Gastrointestinal: R flank pain with guarding. No RUQ or RLQ guarding or rebound. No pulsatile masses. Healed, well appearing transverse lower abdominal surgery scar noted Neuro: Alert and oriented. Moving all four extremities spontaneously. Skin: Warm, dry, and intact. No bruising, rashes, or other lesions. No palpable nodules. : No CVA tenderness. Psych: Affect: appropriate. Mood: concerned. ED Treatment Course - LABORATORY CBC & Chemistry Diagram: 02/08/18 12:48 02/08/18 12:48 - ADDITIONAL ORDERS Additional order review: Laboratory Results 02/08/18 02/08/18 02/08/18 12:48 12:48 12:37 PT with INR 10.80 INR 0.96 Sodium 141 Potassium 3.8 Chloride 105 Carbon Dioxide 29 Anion Gap 7 L BUN 12 Creatinine 0.7 Creat Clearance w eGFR > 60 Random Glucose 106 Calcium 9.0 Total Bilirubin 0.2 AST 20 ALT 21 Alkaline Phosphatase 66 Total Protein 7.6 Albumin 4.1 Lipase 151 Urine HCG, Qual Negative 02/08/18 12:48 RBC 4.66 MCV 93.4 MCHC 33.6 RDW 13.6 D MPV 9.2 Neutrophils % 50.7 Lymphocytes % 37.9 Monocytes % 7.1 Eosinophils % 3.5 Basophils % 0.8 - RADIOLOGY Radiology Studies Ordered: Category Date Time Status SPIRAL- RENAL-STONE CT [CT] Stat CT Scan 02/08/18 12:41 Ordered Radiograph Interpretation: Spiral (Non-con) Abd/Pelvis CT: Valentina Martins MD wrote on Feb 08, 2018 at 02:23 PM: Referring Physician: BISHOP TUCKER Patient Name: SHANNA TUCKER THIS IS A PRELIMINARY REPORT FROM [facility] DATE OF SERVICE: 2018-02-08 13:49:33 IMAGES: [id number] EXAM: CT abdomen \T\ pelvis without contrast HISTORY: Right lower quadrant pain. Appendicitis versus stone. COMPARISON: None. FINDINGS: 1. There is moderate right hydronephrosis with right hydroureter. There is an approximately 4.5 mm x 3 mm x 3.7 mm obstructing stone in the right ureterovesicular junction. 2. There are additional stones in the renal pelvis bilaterally. 3. The appendix is normal in appearance. 4. There is an approximately 3 cm x 4 cm x 3.2 cm low-attenuation structure in the right adnexa. This is likely ovarian in origin. The Hounsfield units are not definitive for a simple cyst. Possible hemorrhagic cyst. If further imaging is required, pelvic ultrasound may be helpful. Individualized dose optimization techniques were used for this CT. THIS DOCUMENT HAS BEEN ELECTRONICALLY SIGNED Valentina Martins MD 02/08/2018 14:21 EST M.D. Please call Imaging [facility] [employer] [phone] ([phone]) with questions. Valentina Martins MD - Medications Given in the ED: ED Medications Discontinued Medications Generic Name Dose Route Start Last Admin Trade Name Freq PRN Reason Stop Dose Admin Morphine Sulfate 4 mg 02/08/18 12:28 02/08/18 12:55 Morphine Injection - IVPUSH 02/08/18 12:29 4 mg ONCE ONE Administration Ondansetron HCl 4 mg 02/08/18 12:28 02/08/18 12:55 Zofran Injection IVPUSH 02/08/18 12:29 4 mg ONCE ONE Administration Medical Decision Making - Medical Decision Making *Reviewed nursing notes and prior visit documentation. 32 y/o female complaining of R flank pain. H/o of similar with nephrolithiasis. Afebrile. Vitals unremarkable for hypotension or tachycardia. R flank pain tenderness. Suspect nephrolithiasis versus pyelonephritis. Low suspicion for ectopic, appendicitis, colitis, pancreatitis, cystitis, torsion, ovarian cyst. Will obtain CBC, CMP, Lipase, UA, urine culture, and pre-op labs. Spiral CT without contrast (stone versus appendicitis). Morphine and Zofran for symptom relief. UA + for blood and RBC. Continue to suspect nephrolithiasis 14:19 Pain and nausea w/ retching persists. Ordered additional morphine and zofran. Spiral CT revealed obstructing nephrolithiasis in right UVJ with moderate R hydronephrosis. Discussed imaging and laboratory results with pt. Answered all questions. Provided return precautions. Pt expressed verbal understanding and agreement with plan to discharge home with outpatient urology follow up. Prescribed Tamsulosin and Naproxen. *DC/Admit/Observation/Transfer Diagnosis at time of Disposition: Nephrolithiasis - Discharge Dispostion Disposition: HOME Condition at time of disposition: Good Decision to Admit order: No - Prescriptions Prescriptions: Naproxen 500 mg PO BID PRN #20 tablet PRN Reason: Pain Oxycodone HCl/Acetaminophen [Percocet 5-325 mg Tablet] 1 tab PO Q6H PRN #12 tablet MDD 4 PRN Reason: Severe Pain Tamsulosin HCl [Flomax] 0.4 mg PO DAILY #14 cap.er.24h - Referrals Referrals: Da Mcmahon MD., MD [Staff Physician] - - Patient Instructions Printed Discharge Instructions: DI for Kidney Stones Additional Instructions: Your CT scan showed you have a large kidney stone on the right side. I have sent three prescriptions to [facility]. Please take these as directed. You need to follow up with a urologist within the next 2-3 days. I have placed a referral for you to see Dr. Mcmahon. You will need to call the office to make an appointment. The number is included in the packet. Go to the nearest emergency department if your symptoms worsen or you feel like your condition requires additional emergency evaluation. Print Language: SENEGALESE - Post Discharge Activity Forms/Work/School Notes: Back to Work
[2018-02-08 13:50] LABS: URINE APPEARANCE CLOUDY; URINE BILIRUBIN NEGATIVE (<2.0 mg/dL); URINE COLOR YELLOW; URINE GLUCOSE (UA) NEGATIVE (NEGATIVE); URINE KETONE NEGATIVE (NEGATIVE); URINE LEUK ESTERASE NEGATIVE (NEGATIVE); URINE NITRITE NEGATIVE (NEGATIVE); URINE PROTEIN NEGATIVE (NEGATIVE); URINE UROBILINOGEN NEGATIVE mg/dL (0.2-1.0)
[2018-02-08 14:02] LABS: EPI CELLS MANY /HPF (FEW); URINE MUCUS RARE
== END 2018-02-08 15:31 | disposition home or self-care (01) ==
LOC: JER 11:57
PROC: 3E033NZ Introduction of Analgesics, Hypnotics, Sedatives into Peripheral Vein, Percutaneous Approach (ICD-10-PCS; principal; 2018-02-08)
PROC: 3E033GC Introduction of Other Therapeutic Substance into Peripheral Vein, Percutaneous Approach (ICD-10-PCS; 2018-02-08)
DX: N13.2 Hydronephrosis with renal and ureteral calculous obstruction (principal); I10 Essential (primary) hypertension; F17.210 Nicotine dependence, cigarettes, uncomplicated
CPT/HCPCS: 36415; 74176; 80053; 81003; 81015; 83690; 84703; 85025; 85610; 86850; 86900; 86901; 87086; 96374; 96376; 99283-25

== ENCOUNTER 2018-08-04 08:36 | Emergency (ER) | payer SELFPAY ==
[2018-08-04 08:54] VITALS: BMI 27.0
--- NOTE | 2018-08-04 09:33 | PDOC ---
History of Present Illness - General Chief Complaint: Pain, Acute Stated Complaint: ABD PAIN Time Seen by Provider: 08/04/18 08:57 - History of Present Illness Initial Comments: 08/04/18 09:28 32 yo LMP 04-25-18 at unknown gestational age, who p/w lower abdominal pain. Patient reports 1 day of crampy, intermittent lower abdominal pain, lasting for seconds and resolving spontaneously. No identifiable triggers or alleviators. Received IVF 05-02-18. Patient denies N/V, F,C, CP, SOB, urinary complaints, BPR, hematuria, pelvic pain, vaginal bleeding or discharge, diarrhea, constipation, lightheadedness, weakness, sensory changes. PMHx: as noted above. H/o . ROS: as noted SHx: Tobacco use 2 cigarettes per day x 18 years. Daily marijuana use. Denies Etoh. Denies sexual acitvity x 6 years. Denies h/o STI's. Allergies: NKDA Warehouse Director: Dr. Earl Past History - Past Medical History Allergies/Adverse Reactions: Allergies Allergy/AdvReac Type Severity Reaction Status Date / Time No Known Allergies Allergy Verified 08/04/18 08:55 Home Medications: Ambulatory Orders Naproxen 500 mg PO BID PRN #20 tablet 02/08/18 Oxycodone HCl/Acetaminophen [Percocet 5-325 mg Tablet] 1 tab PO Q6H PRN #12 tablet MDD 4 02/08/18 Tamsulosin HCl [Flomax] 0.4 mg PO DAILY #14 cap.er.24h 02/08/18 COPD: No HTN: Yes (Borderline) - Suicide/Smoking/Psychosocial Hx Smoking History: Never smoked Have you smoked in the past 12 months: No Number of Cigarettes Smoked Daily: 20 Cigars Per Day: 0 Information on smoking cessation initiated: No 'Breaking Loose' booklet given: 02/07/17 Hx Alcohol Use: No Drug/Substance Use Hx: No Substance Use Type: None Review of Systems - Review of Systems Comments:: 08/04/18 09:34 GENERAL/CONSTITUTIONAL: No fever or chills. No weakness. HEAD, EYES, EARS, NOSE AND THROAT: No change in vision. No ear pain or discharge. No sore throat. CARDIOVASCULAR: No chest pain or shortness of breath RESPIRATORY: No cough, wheezing, or hemoptysis. GASTROINTESTINAL: + lower abdominal pain. No nausea, vomiting, diarrhea or constipation. GENITOURINARY: No dysuria, frequency, or change in urination. MUSCULOSKELETAL: No joint or muscle swelling or pain. No neck or back pain. SKIN: No rash NEUROLOGIC: No headache, vertigo, loss of consciousness, or change in strength/ sensation. ENDOCRINE: No increased thirst. No abnormal weight change HEMATOLOGIC/LYMPHATIC: No anemia, easy bleeding, or history of blood clots. ALLERGIC/IMMUNOLOGIC: No hives or skin allergy. *Physical Exam - Vital Signs Last Vital Signs Temp Pulse Resp BP Pulse Ox 98.7 F 79 16 118/69 100 08/04/18 08:40 08/04/18 08:40 08/04/18 08:40 08/04/18 08:40 08/04/18 08:40 - Physical Exam Comments: 08/04/18 09:34 GENERAL: Awake, alert, and fully oriented, in no acute distress HEAD: No signs of trauma, normocephalic, atraumatic EYES: PERRLA, EOMI, sclera anicteric, conjunctiva clear ENT: Hearing grossly normal, nares patent, oropharynx clear without exudates. Moist mucosa NECK: Normal ROM, supple, no lymphadenopathy, JVD, or masses LUNGS: No distress, speaks full sentences, clear to auscultation bilaterally HEART: Regular rate and rhythm, normal S1 and S2, no murmurs, rubs or gallops, peripheral pulses normal and equal bilaterally. ABDOMEN: Soft, nontender, normoactive bowel sounds. No guarding, no rebound. No masses GENITOURINARY: Nml appearing external genitlai. Absent lesions. Vaginal vault with absent blood, or discharge. Absent adenexal ttp. Cervical os closed. Absent CMT on BM. 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 EXTREMITIES : Normal inspection, Normal range of motion, no edema. No clubbing or cyanosis. NEUROLOGICAL: Cranial nerves II through XII grossly intact. Normal speech, normal gait, no focal sensorimotor deficits SKIN: Warm, Dry, normal turgor, no rashes or lesions noted Moderate Sedation - Procedure Monitoring Vital Signs: Procedure Monitoring Vital Signs Temperature 98.7 F 08/04/18 08:40 Pulse Rate 79 08/04/18 08:40 Respiratory Rate 16 08/04/18 08:40 Blood Pressure 118/69 08/04/18 08:40 O2 Sat by Pulse Oximetry (%) 100 08/04/18 08:40 ED Treatment Course - LABORATORY CBC & Chemistry Diagram: 08/04/18 10:00 08/04/18 10:00 - ADDITIONAL ORDERS Additional order review: 08/04/18 13:15 Study Date: 04-Aug-2018 10:36 Harleen Duke Name: SHANNA TUCKER DEPARTMENT OF RADIOLOGY Phys: Lonnie Avila RESIDENT : 1985 Age: 32 Sex: F [facility] Acct: [id number] Loc: [address] Exam Date: 08/04/18 Status: [facility] [place] [address] Unit Number: [id number] EXAM#: TYPE/EXAM: RESULT: [id number] US/ <14WKS US Lower abdominal pain. Obstetrical/pelvis ultrasound, transabdominal and transvaginal. Compared to prior examination dated 10/31/2015 LMP: Unknown The uterus measures 8.7 x 6.2 cm in sagittal and AP dimension and it is retroflexed on the transvaginal images. A tiny intrauterine gestational sac like structure is present with a mean sac diameter of 5 mm. Endometrial stripe measures 1.5 cm in thickness. Normal appearing right ovary measuring 2.7 x 1.3 cm with normal vascular flow, arterial and venous. Normal-appearing left ovary measuring 3.7 x 2.3 cm with normal vascular flow, arterial and venous. IMPRESSION: Borderline thickening of the endometrial stripe. Tiny intrauterine gestational sac like structure with a mean sac diameter of 5 mm. Correlation with serial quantitative serum beta hCG and follow-up ultrasound within one week is recommended for further evaluation. Reported By: Melani Pearson MD 08/04/18 1309 Lonnie Avila Technologist: Kayleen Contreras Transcribed Date/Time: 08/04/18 130 Special Procedures Nurse: Mleani Pearson Printed Date/Time: By: Medical Decision Making - Medical Decision Making 08/04/18 09:52 32 yo LMP 11-17-18 at unknown gestational age, who p/w lower abdominal pain. Vitals wnl, AF, A&Ox3. Physical exam unremarkable. Assess for viable IUP. Will consider related causes of abdominal pain including ectopic preganancy, threatened , OSVALDO. Will consider cystitis, gastroenteritis, appendicitis, ovarian pathology. Ed Course: 08/04/18 10:50 CBC: Unremarkable CMP: Unremarkable UA: Neg urine preg + 08/04/18 11:18 HC.9 08/04/18 11:19 Patient advised to f/u with Warehouse Director 08/04/18 13:16 TVUS: Borderline thickening of the endometrial stripe. Tiny intrauterine gestational sac like structure with a mean sac diameter of 5 mm. Correlation with serial quantitative serum beta hCG and follow-up ultrasound within one week is recommended for further evaluation. Called patient [id number] and discussed ultrasound results and need to f/u with Warehouse Director and serial HCG and U/S in48 hours. *DC/Admit/Observation/Transfer Diagnosis at time of Disposition: Abdominal pain affecting - Discharge Dispostion Disposition: HOME Condition at time of disposition: Stable Decision to Admit order: No - Referrals Referrals: Emmie Steele MD [Primary Care Provider] - Lakisha Earl MD [Staff Physician] - - Patient Instructions Printed Discharge Instructions: DI for Abdominal Pain-Adult, DI for Abdominal Pain -- Early Additional Instructions: Please return to the emergency department with any new or worsening symptoms or concerns. Please follow up with your primary care or Warehouse Director physician within 72 hours. You will need repeat ultrasound and lab testing in one week. - Post Discharge Activity Forms/Work/School Notes: Back to Work - Attestations Physician Attestion: 08/04/18 11:17 I attest to the information provided in this note.
[2018-08-04 10:23] LABS: URINE APPEARANCE CLEAR; URINE BILIRUBIN NEGATIVE (<2.0 mg/dL); URINE COLOR LTYELLOW; URINE GLUCOSE (UA) NEGATIVE (NEGATIVE); URINE KETONE NEGATIVE (NEGATIVE); URINE LEUK ESTERASE NEGATIVE (NEGATIVE); URINE NITRITE NEGATIVE (NEGATIVE); URINE PROTEIN NEGATIVE (NEGATIVE); URINE UROBILINOGEN NEGATIVE mg/dL (0.2-1.0)
[2018-08-04 10:25] LABS: HCG,QUALITATIVE URINE Positive
[2018-08-04 10:33] LABS: BASO % 0.5 % (0-2.0); EOS % 2.4 % (0-4.5); HEMATOCRIT 39.9 % (32.4-45.2); HEMOGLOBIN 13.9 GM/dL (10.7-15.3); LYMPH % 36.1 % (8-40); MCH 33.3 pg (25.7-33.7); MCHC 34.9 g/dl (32.0-36.0); MEAN CELL VOLUME 95.3 fl (80-96); MEAN PLT VOLUME 9.1 fl (7.5-11.1); MONO % 6.8 % (3.8-10.2); NEUT % 54.2 % (42.8-82.8); PLATELET COUNT 234 K/MM3 (134-434); RBC 4.18 M/mm3 (3.60-5.2); RDW 12.5 % (11.6-15.6); WHITE BLOOD COUNT 5.9 K/mm3 (4.0-10.0)
[2018-08-04 11:13] LABS: ALBUMIN 3.9 g/dl (3.4-5.0); ALK PHOS 60 U/L (45-117); ANION GAP 8 MMOL/L (8-16); BILIRUBIN,TOTAL 0.7 mg/dL (0.2-1); BLOOD UREA NITROGEN 7 mg/dL (7-18); CALCIUM 8.8 mg/dL (8.5-10.1); CHLORIDE 106 mmol/L (98-107); CO2 24 mmol/L (21-32); CREATININE 0.5 mg/dL (0.55-1.3); GLUCOSE,RANDOM 88 mg/dL (74-106); POTASSIUM 4.1 mmol/L (3.5-5.1); SGOT/AST 12 U/L (15-37); SGPT/ALT 20 U/L (13-61); SODIUM 138 mmol/L (136-145); TOT PROT 7.1 g/dl (6.4-8.2)
--- NOTE | 2018-08-04 11:28 | PDOC ---
Attending Attestation - Resident Resident Name: Henry Avilason - ED Attending Attestation I have performed the following: I have examined & evaluated the patient, The case was reviewed & discussed with the resident, I agree w/resident's findings & plan - HPI HPI: 08/04/18 11:23 32y/o F now on third IVF with implantation April 2018 (states had + HCG May but negative HCG in June), had light 2-day menses in June otherwise no menses this month and now positive home p/w fleeting pelvic cramps this morning while driving, no discharge/bleeding. no urinary complaints, states she's not sexually active. - Physicial Exam PE: 08/04/18 11:26 Vital signs normal Urine positive Well-appearing and in the groin Abdomen is soft/nontender/nondistended Healed abdominoplasty scar Pelvic per resident - Medical Decision Making 08/04/18 11:26 32-year-old female status post IVF implantation in April with variable results since then he presents now with positive and fleeting pelvic cramping without bleeding or discharge. Question chemical , rule out ectopic. Abdomen benign. HCG 1900, urinalysis clear Rh+ Ultrasound performed but reading is pending, patient had to leave the department urgently for personal reasons despite understanding full spectrum of risks. She left a reliable call back number and we will notify her of the ultrasound results as soon as they are available. Otherwise, she has OB follow- up established in the city with the IVF Center and with Dr. Bullock
[2018-08-04 11:38] VITALS: BP 115/68; PULSE 77; TEMP 98
== END 2018-08-04 11:38 | disposition home or self-care (01) ==
LOC: JER 08:36
DX: O26.899 Other specified pregnancy related conditions, unspecified trimester (principal); R10.30 Lower abdominal pain, unspecified; Z3A.00 Weeks of gestation of pregnancy not specified
CPT/HCPCS: 36415; 76801-TC; 80053; 81003; 84702; 84703; 85025; 86850; 86900; 86901; 87086; 99282-25

== ENCOUNTER 2019-08-07 18:20 | Emergency (ER) | payer OTHER ==
[2019-08-07 18:35] VITALS: TEMP 98.5; BMI 25.4
--- NOTE | 2019-08-07 18:45 | PDOC ---
History of Present Illness - General Chief Complaint: Overdose Stated Complaint: VOMITING/OVERDOSE Time Seen by Provider: 08/07/19 18:43 History Source: Patient - History of Present Illness Initial Comments: 08/07/19 20:40 Ms. Santana is a 33 y/o woman w/hx wisdom tooth removal two days ago p/w ongoing jaw pain. She reports being prescribed 600mg ibuprofen and 300/30 mg acetaminophen/codeine for pain control but has had ongoing pain and swelling under her bilateral jaw. She reports taking 5 pills of her acetaminophen/ codeine pill over the course of the day, as well as 3 pulls of her ibuprofen today. She denies any other medications to control her pain. She denies any SI/ HI. She reports history of depression in the past, but no prior suicide attempts. She reports wanting to live for her children and her dog and denies any intent for self harm. She endorses chills since the surgery, but denies any fevers, nausea, vomiting, difficulty breathing, or chest pain. Past History - Past Medical History Allergies/Adverse Reactions: Allergies Allergy/AdvReac Type Severity Reaction Status Date / Time No Known Allergies Allergy Verified 08/07/19 18:30 Home Medications: Ambulatory Orders Naproxen 500 mg PO BID PRN #20 tablet 02/08/18 Oxycodone HCl/Acetaminophen [Percocet 5-325 mg Tablet] 1 tab PO Q6H PRN #12 tablet MDD 4 02/08/18 Tamsulosin HCl [Flomax] 0.4 mg PO DAILY #14 cap.er.24h 02/08/18 COPD: No HTN: Yes (Borderline) - Reproductive History (#): 3 Para: 2 - Psycho Social/Smoking Cessation Hx Smoking History: Current every day smoker Have you smoked in the past 12 months: No Number of Cigarettes Smoked Daily: 20 Cigars Per Day: 0 Information on smoking cessation initiated: No 'Breaking Loose' booklet given: 02/07/17 Hx Alcohol Use: No Drug/Substance Use Hx: No Substance Use Type: None Review of Systems - Review of Systems Able to Perform ROS?: Yes Comments:: 08/07/19 21:49 ROS: GENERAL/CONSTITUTIONAL: Chills. No fever. No weakness. HEAD, EYES, EARS, NOSE AND THROAT: Jaw pain. No change in vision. No ear pain or discharge. No sore throat. CARDIOVASCULAR: No chest pain or shortness of breath RESPIRATORY: No cough, wheezing, or hemoptysis. GASTROINTESTINAL: No nausea, vomiting, diarrhea or constipation. GENITOURINARY: No dysuria, frequency, or change in urination. MUSCULOSKELETAL: No joint or muscle swelling or pain. No neck or back pain. SKIN: No rash NEUROLOGIC: No headache, vertigo, loss of consciousness, or change in strength/ sensation. ENDOCRINE: No increased thirst. No abnormal weight change HEMATOLOGIC/LYMPHATIC: No anemia, easy bleeding, or history of blood clots. ALLERGIC/IMMUNOLOGIC: No hives or skin allergy. *Physical Exam - Vital Signs Last Vital Signs Temp Pulse Resp BP Pulse Ox 98.5 F 96 H 18 125/83 97 08/07/19 18:30 08/07/19 18:30 08/07/19 18:30 08/07/19 18:30 08/07/19 18:30 - Physical Exam 08/07/19 21:50 PE: GENERAL: Awake, alert, and fully oriented, in no acute distress HEAD: No signs of trauma, normocephalic, atraumatic EYES: PERRLA, EOMI, sclera anicteric, conjunctiva clear ENT: Auricles normal inspection, hearing grossly normal, nares patent, oropharynx clear without exudates. Moist mucosa NECK: Normal ROM, supple, no lymphadenopathy, JVD, or masses LUNGS: No distress, speaks full sentences, clear to auscultation bilaterally HEART: Regular rate and rhythm, normal S1 and S2, no murmurs, rubs or gallops, peripheral pulses normal and equal bilaterally. ABDOMEN: Soft, nontender, normoactive bowel sounds. No guarding, no rebound. No masses EXTREMITIES : Normal inspection, Normal range of motion, no edema. No clubbing or cyanosis NEUROLOGICAL: Cranial nerves II through XII grossly intact. Normal speech, normal gait, no focal sensorimotor deficits SKIN: Warm, Dry, normal turgor, no rashes or lesions noted ED Treatment Course - LABORATORY CBC & Chemistry Diagram: 08/07/19 19:05 08/07/19 19:05 Medical Decision Making - Medical Decision Making 33F w/wisdom tooth removal 5 days ago p/w worsening facial pain, swelling, chills. Ddx includes post-op pain, infection, progression through sinuses. Plan: CBC CMP EKG CXR Cardiac profile Acetaminophen Salicylates Alcohol CT soft tissue face UA Urine culture Urine Serum tox screen 2mg morphine for pain Dispo: Pending, likely discharge --- CBC - wnl CMP - wnl Troponin - negative Alcohol - negative Acetaminophen - negative Salicylates - negative UA - negative Urine - negative On reassessment, patient nauseated with ongoing pain. Plan for zofran, additional 2mg morphine --- CT - notable for incidental thyroid nodule. No acute process visualized. Discussed results with patient, provided copy of imaging report. Plan for discharge with close PCP follow up. Discharge - Discharge Information Problems reviewed: Yes Clinical Impression/Diagnosis: Post-op pain Condition: Stable Disposition: HOME - Admission No - Follow up/Referral - Patient Discharge Instructions Patient Printed Discharge Instructions: DI for Mouth Pain Additional Instructions: You were seen in the ER for mouth pain, chills. Your bloodwork was normal. Your CT scan was normal. Please be sure to follow up with your primary care doctor as soon as possible, in the next 2-3 days. Return to the ER if you develop any trouble breathing, high fevers, weakness. - Post Discharge Activity
[2019-08-07 19:44] LABS: BASO % 0.8 % (0-2.0); EOS % 2.6 % (0-4.5); HEMATOCRIT 41.6 % (32.4-45.2); HEMOGLOBIN 14.2 GM/dL (10.7-15.3); LYMPH % 39.6 % (8-40); MCH 32.1 pg (25.7-33.7); MCHC 34.2 g/dl (32.0-36.0); MEAN CELL VOLUME 93.7 fl (80-96); MEAN PLT VOLUME 9.2 fl (7.5-11.1); MONO % 7.3 % (3.8-10.2); NEUT % 49.7 % (42.8-82.8); PLATELET COUNT 260 K/MM3 (134-434); RBC 4.44 M/mm3 (3.60-5.2); RDW 12.7 % (11.6-15.6); WHITE BLOOD COUNT 7.5 K/mm3 (4.0-10.0)
[2019-08-07 19:52] VITALS: BP 116/76; PULSE 60
[2019-08-07 20:04] LABS: HCG,QUALITATIVE URINE Negative
--- NOTE | 2019-08-07 20:06 | PDOC ---
Documentation entered by Ana Laura Bangura SCRIBE, acting as scribe for Oma Cowart DO. Oma Cowart DO: This documentation has been prepared by the Sveta flores Xhesika, SCRIBE, under my direction and personally reviewed by me in its entirety. I confirm that the documentation accurately reflects all work, treatment, procedures, and medical decision making performed by me. Attending Attestation - Resident Resident Name: Ganga Parks - ED Attending Attestation I have performed the following: I have examined & evaluated the patient, The case was reviewed & discussed with the resident, I agree w/resident's findings & plan - HPI HPI: 08/07/19 19:14 The patient is a 33 year old female with no significant PMH of who presents to the emergency department for worsening dental pain post-op. The patient states she got her wisdom tooth removed on Friday (08/02/19). The patient states her pain was so severe she took 2 extra tylenol 300mg with codeine 30mg. The patient denies chest pain, shortness of breath, headache and dizziness. Denies cough, nausea, vomiting, diarrhea and constipation. Allergies: NKDA - Physicial Exam PE: 08/07/19 19:15 Agree with resident exam. - Medical Decision Making 08/07/19 20:05 33-year-old female complaining of dental pain status post wisdom tooth extraction Patient took extra doses of Tylenol with codeine and Motrin also complaining of mild epigastric discomfort Any overdose was not intentional, there is no homicidal or suicidal ideation Plan for labs, CT scan of the maxillofacial region to rule out collection Hopeful for DC home pending results
[2019-08-07 20:12] LABS: COCAINE, UR NEGATIVE ng/ml (CUTOFF=300); METHADONE, UR NEGATIVE ng/ml (CUTOFF=300); PHENCYCLIDINE,URINE NEGATIVE ng/ml (CUTOFF=25); URINE AMPHETAMINES NEGATIVE ng/ml (CUTOFF=500); URINE BARBITURATES NEGATIVE ng/ml (CUTOFF=200); URINE BENZODIAZEPINES NEGATIVE ng/ml (CUTOFF=200)
[2019-08-07] MEDS ORDERED: morphine CARPU-JECT 2 MG/1 ML DISP.SYRIN IVPUSH ONE ×2 (20:17→22:00)
[2019-08-07] MEDS ORDERED: MORPHINE SULFATE 2 MG/ML VIAL ONE ×2 (20:21→22:04)
[2019-08-07 20:22] LABS: OPIATES, URI POSITIVE ng/ml (CUTOFF=300)
[2019-08-07 20:26] LABS: ALBUMIN 4.1 g/dl (3.4-5.0); ALK PHOS 62 U/L (45-117); ANION GAP 8 MMOL/L (8-16); BILIRUBIN,TOTAL 0.2 mg/dL (0.2-1); BLOOD UREA NITROGEN 9.3 mg/dL (7-18); CALCIUM 9.3 mg/dL (8.5-10.1); CHLORIDE 104 mmol/L (98-107); CO2 30 mmol/L (21-32); CREATININE 0.6 mg/dL (0.55-1.3); GLUCOSE,RANDOM 94 mg/dL (74-106); POTASSIUM 4.1 mmol/L (3.5-5.1); SGOT/AST 16 U/L (15-37); SGPT/ALT 22 U/L (13-61); SODIUM 141 mmol/L (136-145); TOT PROT 7.3 g/dl (6.4-8.2)
[2019-08-07 20:29] LABS: EPI CELLS 1.5 /HPF (0-5/HPF); HYALINE CASTS 2 /lpf (0-8); PH,URINE 5.5 (5.0-8.0); URINE APPEARANCE CLOUDY; URINE BACTERIA 16.5 /hpf (NEGATIVE); URINE BILIRUBIN NEGATIVE (NEGATIVE); URINE COLOR ORANGE; URINE GLUCOSE (UA) NEGATIVE (NEGATIVE); URINE KETONE NEGATIVE (NEGATIVE); URINE LEUK ESTERASE NEGATIVE (NEGATIVE); URINE NITRITE NEGATIVE (NEGATIVE); URINE PROTEIN TRACE (NEGATIVE); URINE RBC 1921 /hpf (0-4); URINE WBC 7 /hpf (0-5)
[2019-08-07] MEDS ORDERED: ONDANSETRON 4 MG/2 ML VIAL IVPUSH ONE (22:00)
[2019-08-07] MEDS ORDERED: ONDANSETRON 4 MG/2 ML VIAL ONE (22:04)
--- NOTE | 2019-08-08 12:07 | EKG ---
Test Reason : Blood Pressure : / mmHG Vent. Rate : 059 BPM Atrial Rate : 059 BPM P-R Int : 156 ms QRS Dur : 094 ms QT Int : 414 ms P-R-T Axes : 057 043 046 degrees QTc Int : 409 ms SINUS BRADYCARDIA OTHERWISE NORMAL ECG WHEN COMPARED WITH ECG OF 02-SEP-2016 16:39, NO SIGNIFICANT CHANGE WAS FOUND Confirmed by DEANNA LUNA MD ([id number]) on 08/08/2019 12:06:57 PM Referred By: Confirmed By:DEANNA LUNA MD
== END 2019-08-07 22:37 | disposition home or self-care (01) ==
LOC: JER 18:20
PROC: 3E033NZ Introduction of Analgesics, Hypnotics, Sedatives into Peripheral Vein, Percutaneous Approach (ICD-10-PCS; principal; 2019-08-07)
PROC: 3E033GC Introduction of Other Therapeutic Substance into Peripheral Vein, Percutaneous Approach (ICD-10-PCS; 2019-08-07)
DX: G89.18 Other acute postprocedural pain (principal); K08.199 Complete loss of teeth due to other specified cause, unspecified class; Z98.818 Other dental procedure status
CPT/HCPCS: 36415; 70491-TC; 71045-TC-FY; 80053; 80307; 81003; 82550; 84484; 84703; 85025; 93005; 93010; 96374; 96375; 96376; 99285-25; Q9967

== ENCOUNTER 2019-08-15 14:54 | Emergency (ER) | payer OTHER ==
[2019-08-15 15:19] VITALS: BMI 28.9
--- NOTE | 2019-08-15 15:45 | PDOC ---
History of Present Illness - General Chief Complaint: Vomiting/Diarrhea Stated Complaint: DIARRHEA/NAUSEA/VOMITING Time Seen by Provider: 08/15/19 15:30 - History of Present Illness Initial Comments: 08/18/19 00:58 33F PMH renal stones presenting with mid-epigastric pain radiating to her back starting today in the setting of perfuse watery nonbloody diarrhea since yesterday. Endorses nbnb vomiting x3 and current nausea. Denies f/c, cp/sob. Denies vaginal bleeding, discharge. No sick contacts or recent travel. Endorses recent abx s/p wisdom tooth extraction; was taking oxycodone for tooth extraction pain. Prior and tummy tuck. Denies etoh, endorses tobacco. NKDA Past History - Past Medical History Allergies/Adverse Reactions: Allergies Allergy/AdvReac Type Severity Reaction Status Date / Time No Known Allergies Allergy Verified 08/07/19 18:30 Home Medications: Ambulatory Orders Oxycodone HCl/Acetaminophen [Percocet 5-325 mg Tablet] 1 tab PO Q6H PRN #12 tablet MDD 4 02/08/18 Famotidine [Pepcid -] 20 mg PO BID #10 tablet 08/15/19 Ondansetron [Zofran *Odt*] 4 mg SL TID #15 od.tablet 08/15/19 COPD: No HTN: Yes (Borderline) - Reproductive History (#): 3 Para: 2 - Psycho Social/Smoking Cessation Hx Smoking History: Never smoked Have you smoked in the past 12 months: No Number of Cigarettes Smoked Daily: 20 Cigars Per Day: 0 Information on smoking cessation initiated: No 'Breaking Loose' booklet given: 02/07/17 Hx Alcohol Use: No Drug/Substance Use Hx: No Substance Use Type: None Review of Systems - Review of Systems Comments:: 08/18/19 00:58 CONSTITUTIONAL: Denies F / C HEENT: Denies headache RESP: Denies SOB CARD: Denies chest pain, palpitations GI: Endorses N / V / D, abdominal pain, inability to tolerate PO : Denies dysuria, vaginal discharge/bleeding SKIN: Denies rashes NEURO: Denies numbness, tingling, weakness MSK: Denies back pain *Physical Exam - Vital Signs Last Vital Signs Temp Pulse Resp BP Pulse Ox 98.3 F 94 H 24 H 139/85 100 08/15/19 15:15 08/15/19 15:15 08/15/19 15:15 08/15/19 15:15 08/15/19 15:15 - Physical Exam 08/18/19 00:58 GEN: Uncomfortable, constantly moving. AAOx3. HEENT: NC/AT, EOMI, PERRL. Normal voice. Supple neck w/ FROM. CV: S1/S2, RRR, no m/r/g LUNG: CTAB, no wheezes, crackles, rales, rhonchi. GI: +TTP epigastrium o/w soft, nd, +BS, no guarding, no rebound. No masses. Neg CVAT b/l. MSK: No obvious deformities of all extremities. SKIN: Warm, dry, no rashes appreciated. PSYCH: pleasant; odd affect/behavior; normal mood NEURO: Moving all extremities well. ambulates w/ normal gait ED Treatment Course - LABORATORY CBC & Chemistry Diagram: 08/15/19 16:15 08/15/19 16:15 Medical Decision Making - Medical Decision Making 08/15/19 15:44 33F c/o watery nonbloody diarrhea, n/v, and epigastric pain. +TTP of the epigastrium; abdomen soft. DDX - likely gastroenteritis; PUD, pancreatitis, colitis, biliary process - cbc, cmp, lipase, amylase, - UA - GI meds, fluids - likely dc home 08/15/19 17:27 POCUS GB meds resolved epigastric pain 08/15/19 17:32 labs reviewed, reassuring f/u urine 08/15/19 17:49 d/w pt re: pros cons of CT A/P; pt declines CT, advised on return precautions DC Discharge - Discharge Information Problems reviewed: Yes Clinical Impression/Diagnosis: Epigastric pain Condition: Stable Disposition: HOME - Admission No - Additional Discharge Information Prescriptions: Famotidine [Pepcid -] 20 mg PO BID #10 tablet Ondansetron [Zofran *Odt*] 4 mg SL TID #15 od.tablet - Follow up/Referral - Patient Discharge Instructions Patient Printed Discharge Instructions: Diarrhea, DI for Epigastric Pain Additional Instructions: We are sending prescriptions to your pharmacy; please pick them up and take as prescribed. Take the prescriptions for your symptoms; take tylenol per the label for pain; take maalox per the label for symptoms. Avoid spicy and fatty foods; avoid diary; avoid alcohol. Follow up with your Primary Care Doctor in the next 1-3 days. Return to the Emergency Department if you experience: - unresolving (over 3 days), worsening, or changing abdominal pain - blood in the vomit or diarrhea - inability to eat or drink - fevers - anything that concerns you - Post Discharge Activity
[2019-08-15] MEDS ORDERED: FAMOTIDINE 20 MG/50 ML IVPB 20 MG/50 ML MG IVPB ONE ×2 (15:57→16:07)
[2019-08-15] MEDS ORDERED: SODIUM CHLORIDE 1,000 ML IV STA (15:57)
[2019-08-15] MEDS ORDERED: ONDANSETRON 4 MG/2 ML VIAL IVPUSH ONE (15:57)
[2019-08-15] MEDS ORDERED: MAG HYDROX/AL HYDROX/SIMETH -MYLANTA- ORAL SUSPENSION PO ONE (16:00)
[2019-08-15] MEDS ORDERED: MAG HYDROX/AL HYDROX/SIMETH 30 ML UNIT-DOSE CUP ONE (16:07)
[2019-08-15] MEDS ORDERED: ONDANSETRON 4 MG/2 ML VIAL ONE (16:07)
--- NOTE | 2019-08-15 16:11 | PDOC ---
Attending Attestation - Resident Resident Name: Obed Lau - ED Attending Attestation I have performed the following: I have examined & evaluated the patient, The case was reviewed & discussed with the resident, I agree w/resident's findings & plan - HPI HPI: 08/15/19 16:08 Healthy 33-year-old female with no significant past medical history (seen here about 2 weeks ago for oral pain and swelling following dental extraction, status post treatment with pain medications and penicillin completed yesterday) presents now with vomiting/diarrhea for 1 day. Patient initially reports constipation that began 4 days ago, then 2 days ago developed watery nonbloody diarrhea with nausea/vomiting yesterday. Intermittent abdominal cramping worse than the epigastric region, slight anorexia, no fevers or chills. Completed penicillin course, no sick contacts, no recent travel, no history of GI illnesses, never required endoscopy or colonoscopy. Does not use excessive amounts of NSAIDs or alcohol - Physicial Exam PE: 08/15/19 16:09 Alert lying in stretcher, no acute distress talking on her cell phone No jaundice or pallor, dry mucosa Heart is regular, lungs are clear Abdomen is soft/nondistended. Discomfort to palpation in the epigastric region without guarding or rebound, no CVA tenderness Healed incisional scar from and abdominoplasty No rash - Medical Decision Making 08/15/19 16:10 Healthy 33-year-old female with nausea/vomiting/diarrhea for 1 day, nonlocalizing abdominal exam without focal peritoneal findings, no other red flags on history or physical exam other than recent completion of antibiotics. Presentation seems most consistent with gastroenteritis, question viral versus food mediated, with symptoms of dyspepsia. Rule out gallbladder etiology nontoxic-appearing. Labs including LFTs and lipase IV fluids, antiemetics, antacids Pocus gallbladder ultrasound Disposition accordingly
[2019-08-15 16:32] LABS: BASO % 0.3 % (0-2.0); EOS % 1.1 % (0-4.5); HEMATOCRIT 45.5 % (32.4-45.2); HEMOGLOBIN 15.4 GM/dL (10.7-15.3); LYMPH % 18.8 % (8-40); MCH 32.2 pg (25.7-33.7); MCHC 33.8 g/dl (32.0-36.0); MEAN CELL VOLUME 95.2 fl (80-96); MEAN PLT VOLUME 9.2 fl (7.5-11.1); MONO % 4.4 % (3.8-10.2); NEUT % 75.4 % (42.8-82.8); PLATELET COUNT 246 K/MM3 (134-434); RBC 4.77 M/mm3 (3.60-5.2); RDW 12.7 % (11.6-15.6); WHITE BLOOD COUNT 7.4 K/mm3 (4.0-10.0)
[2019-08-15 17:21] LABS: ALBUMIN 4.1 g/dl (3.4-5.0); BILIRUBIN,TOTAL 0.5 mg/dL (0.2-1); BLOOD UREA NITROGEN 8.6 mg/dL (7-18); CALCIUM 8.9 mg/dL (8.5-10.1); CREATININE 0.5 mg/dL (0.55-1.3); POTASSIUM 4.6 mmol/L (3.5-5.1); TOT PROT 7.9 g/dl (6.4-8.2)
[2019-08-15] MEDS ORDERED: ACETAMINOPHEN 1000 MG/100 ML VIAL (NON FORMULARY) IVPB ONE (17:34)
[2019-08-15 17:35] LABS: EPI CELLS 0.9 /HPF (0-5/HPF); HYALINE CASTS 1 /lpf (0-8); URINE APPEARANCE CLEAR; URINE BACTERIA 3.4 /hpf (NEGATIVE); URINE BILIRUBIN NEGATIVE (NEGATIVE); URINE COLOR YELLOW; URINE GLUCOSE (UA) NEGATIVE (NEGATIVE); URINE KETONE NEGATIVE (NEGATIVE); URINE LEUK ESTERASE NEGATIVE (NEGATIVE); URINE NITRITE NEGATIVE (NEGATIVE); URINE PROTEIN NEGATIVE (NEGATIVE); URINE RBC 4 /hpf (0-4); URINE UROBILINOGEN 0.2 mg/dL (0.2-1.0); URINE WBC 1 /hpf (0-5)
[2019-08-15] MEDS ORDERED: ACETAMINOPHEN INJECTION 100 ML IVPB ONE (17:35)
[2019-08-15 18:01] VITALS: BP 138/84; PULSE 69; TEMP 9.1
== END 2019-08-15 18:09 | disposition home or self-care (01) ==
LOC: JER 14:54
PROC: 3E033GC Introduction of Other Therapeutic Substance into Peripheral Vein, Percutaneous Approach (ICD-10-PCS; principal; 2019-08-15)
PROC: 3E033NZ Introduction of Analgesics, Hypnotics, Sedatives into Peripheral Vein, Percutaneous Approach (ICD-10-PCS; 2019-08-15)
DX: R10.13 Epigastric pain (principal); I10 Essential (primary) hypertension; F17.210 Nicotine dependence, cigarettes, uncomplicated
CPT/HCPCS: 36415; 76705-TC; 80053; 81003; 82150; 83690; 84703; 85025; 87086; 96365; 96375; 99285-25; J0131; J7030

== ENCOUNTER 2020-06-09 13:09 | Emergency (ER) | payer OTHER | END 2020-06-09 15:16 | disposition home or self-care (01) | LOC: JVIRT 13:09 | DX: U07.1 COVID-19 (principal) | CPT/HCPCS: C9803; Q3014-GT; U0003 ==

== ENCOUNTER 2021-01-18 21:15 | Inpatient (IN) | payer OTHER ==
[2021-01-18] MEDS ORDERED: IBUPROFEN 600 MG TABLET (FP) PO ONE (21:49)
[2021-01-18] MEDS ORDERED: ACETAMINOPHEN 1000 MG/100 ML VIAL (NON FORMULARY) IVPB ONE (22:06)
[2021-01-18] MEDS ORDERED: morphine CARPU-JECT 4 MG/1 ML DISP.SYRIN IVPUSH ONE (22:14)
[2021-01-18] MEDS ORDERED: FAMOTIDINE 20 MG/50 ML IVPB 20 MG/50 ML MG IVPB ONE ×2 (22:14→22:21)
[2021-01-18] MEDS ORDERED: ONDANSETRON 4 MG/2 ML VIAL IVPUSH ONE (22:14)
[2021-01-18] MEDS ORDERED: SODIUM CHLORIDE 0.9% 1000 ML INFUS.BAG IV ONE (22:14)
[2021-01-18] MEDS ORDERED: MORPHINE SULFATE 2 MG/ML VIAL ONE ×2 (22:16→22:21)
[2021-01-18] MEDS ORDERED: ACETAMINOPHEN INJECTION 100 ML IVPB ONE (22:17)
[2021-01-18] MEDS ORDERED: ONDANSETRON 4 MG/2 ML VIAL ONE (22:17)
[2021-01-18 23:06] LABS: BASO % 0.5 % (0-2.0); EOS % 2.2 % (0-4.5); HEMATOCRIT 40.1 % (32.4-45.2); HEMOGLOBIN 13.7 GM/dL (10.7-15.3); LYMPH % 26.1 % (8-40); MCH 32.4 pg (25.7-33.7); MCHC 34.2 g/dl (32.0-36.0); MEAN CELL VOLUME 94.7 fl (80-96); MEAN PLT VOLUME 9.3 fl (7.5-11.1); MONO % 4.8 % (3.8-10.2); NEUT % 66.4 % (42.8-82.8); PLATELET COUNT 254 10^3/uL (134-434); RBC 4.23 M/mm3 (3.60-5.2); RDW 12.8 % (11.6-15.6); WHITE BLOOD COUNT 11.4 K/mm3 (4.0-10.0)
[2021-01-18 23:08] LABS: EPI CELLS >36 /uL (0-25.1); HYALINE CASTS 4 /uL (0-3.1); PH,URINE >= 9.0 (5.0-8.0); URINE APPEARANCE TURBID; URINE BILIRUBIN 1+ (NEGATIVE); URINE COLOR RED; URINE GLUCOSE (UA) NEGATIVE (NEGATIVE); URINE KETONE NEGATIVE (NEGATIVE); URINE LEUK ESTERASE 2+ (NEGATIVE); URINE NITRITE POSITIVE (NEGATIVE); URINE PROTEIN 2+ (NEGATIVE); URINE RBC 39956 /uL (0-23.9); URINE UROBILINOGEN 0.2 mg/dL (0.2-1.0); URINE WBC 145 /uL (0-25.8)
[2021-01-18] MEDS ORDERED: CEFTRIAXONE 1 GM in DEXTROSE 5%-WATER - 100 ML IVPB ONE (23:11)
[2021-01-18 23:15] LABS: CHLORIDE 107 mmol/L (98-107); SODIUM 143 mmol/L (136-145)
[2021-01-18 23:17] LABS: ALBUMIN 4.1 g/dl (3.4-5.0); CALCIUM 8.7 mg/dL (8.5-10.1)
[2021-01-18 23:18] LABS: ANION GAP 10 MMOL/L (8-16); BLOOD UREA NITROGEN 10.4 mg/dL (7-18); CO2 26 mmol/L (21-32); GLUCOSE,RANDOM 89 mg/dL (74-106)
[2021-01-18 23:21] LABS: CREATININE 0.7 mg/dL (0.55-1.3); SGOT/AST 29 U/L (15-37); SGPT/ALT 21 U/L (13-61)
[2021-01-18 23:22] LABS: BILIRUBIN,TOTAL 0.3 mg/dL (0.2-1); TOT PROT 7.3 g/dl (6.4-8.2)
[2021-01-18 23:23] LABS: ALK PHOS 62 U/L (45-117)
[2021-01-18 23:55] LABS: URINE BACTERIA 0.9 /uL (0-1359)
[2021-01-19] MEDS ORDERED: CEFTRIAXONE 1 GM/50 ML BAG ONE (00:15)
[2021-01-19] MEDS ORDERED: PIPERACILLIN/TAZOB 4.5 GM 4.5 GM in DEXTROSE 5%-WATER 100 ML IVPB ONE (00:44)
[2021-01-19] MEDS ORDERED: TAMSULOSIN HCL 0.4 MG CAP PO ONE (00:46)
[2021-01-19] MEDS ORDERED: KETOROLAC TROMETHAMINE 15 MG/ML VIAL IM ONE (00:55)
[2021-01-19] MEDS ORDERED: LACTATED RINGERS SOLUTION 1,000 ML/1,000 ML INFUS.BAG IV SCH (01:00)
[2021-01-19] MEDS ORDERED: KETOROLAC TROMETHAMINE 30 MG/1 ML VIAL IVPUSH ONE (01:20)
[2021-01-19] MEDS ORDERED: KETOROLAC TROMETHAMINE 15 MG/ML VIAL ONE (01:36)
[2021-01-19] MEDS ORDERED: HYDROmorphone HCL CARPU-JECT 2 MG/1 ML DISP.SYRIN IVPUSH ONE (01:45)
[2021-01-19] MEDS ORDERED: TAMSULOSIN HCL 0.4 MG CAP ONE ×2 (01:49→08:09)
[2021-01-19] MEDS ORDERED: HYDROmorphone HCl 2 MG/ML VIAL ONE (01:49)
[2021-01-19] MEDS ORDERED: PIPERACILLIN/TAZOB 4.5 GM 4.5 GM/100 ML BAG IVPB ONE ×2 (01:50→08:10)
[2021-01-19] MEDS ORDERED: ONDANSETRON 4 MG/2 ML VIAL IVPUSH ONE (02:31)
[2021-01-19] MEDS ORDERED: ONDANSETRON 4 MG/2 ML VIAL ONE ×3 (02:40→17:00)
[2021-01-19] MEDS ORDERED: MORPHINE SULFATE 2 MG/ML VIAL IVPUSH PRN (03:28)
[2021-01-19] MEDS: ONDANSETRON 4 MG/2 ML VIAL IVPUSH PRN ×2 (05:28→17:05)
[2021-01-19] MEDS: NICOTINE 7 MG/24 HOURS TOPICAL PATCH TD SCH (07:10)
[2021-01-19] MEDS ORDERED: PT OWN MED DRAWER 7, Y5N ONE ×3 (08:08→11:16)
[2021-01-19] MEDS ORDERED: TAMSULOSIN HCL 0.4 MG CAP PO SCH (08:30)
[2021-01-19] MEDS: PIPERACILLIN/TAZOB 4.5 GM 4.5 GM in DEXTROSE 5%-WATER 100 ML IVPB SCH ×2 (09:08→17:43)
[2021-01-19] MEDS ORDERED: fentaNYL CITRATE 250 MCG/5 ML VIAL ONE (12:05)
[2021-01-19] MEDS ORDERED: MIDAZOLAM HCL 2 MG/2 ML SINGLE DOSE VIAL ONE (12:06)
[2021-01-19] MEDS ORDERED: PROPOFOL 20 ML ONE ×2 (12:06→12:38)
[2021-01-19] MEDS ORDERED: GENTAMICIN 80MG PREMIX BAG IVPB ONE (12:37)
[2021-01-19] MEDS ORDERED: ACETAMINOPHEN 325 MG TABLET (FP) PO PRN (13:30)
[2021-01-19] MEDS ORDERED: ONDANSETRON 4 MG/2 ML VIAL IVPUSH PRN (13:42)
[2021-01-19] MEDS: LACTATED RINGERS SOLUTION 1,000 ML IV SCH (17:50)
[2021-01-19 18:39] VITALS: BMI 30.4
[2021-01-19] MEDS: oxyCODONE HCL 5 MG TABLET PO PRN (18:54)
[2021-01-19] MEDS: ACETAMINOPHEN 325 MG TABLET (FP) PO PRN (18:55)
[2021-01-20] MEDS ORDERED: PIPERACILLIN/TAZOBACTAM 3.375 GM VIAL IVPB ONE ×4 (02:14→21:06)
[2021-01-20] MEDS ORDERED: DEXTROSE 5%-WATER - 50 ML IVPB ONE ×4 (02:15→21:07)
[2021-01-20] MEDS: oxyCODONE HCL 5 MG TABLET PO PRN ×4 (02:18→22:53)
[2021-01-20] MEDS: NICOTINE 7 MG/24 HOURS TOPICAL PATCH TD SCH ×3 (02:24→09:14)
[2021-01-20] MEDS: PIPERACILLIN/TAZOB 3.375 GM 3.375 GM in DEXTROSE 5%-WATER - 50 ML IVPB SCH ×5 (02:25→22:41)
[2021-01-20] MEDS ORDERED: ALPRAZolam 1 MG TABLET PO PRN (03:03)
[2021-01-20] MEDS: PIPERACILLIN/TAZOB 4.5 GM 4.5 GM in DEXTROSE 5%-WATER 100 ML IVPB SCH (07:17)
[2021-01-20] MEDS: TAMSULOSIN HCL 0.4 MG CAP PO SCH (08:39)
[2021-01-20] MEDS: LACTATED RINGERS SOLUTION 1,000 ML IV SCH ×2 (08:49→15:04)
[2021-01-20 09:38] LABS: BASO % 0.4 % (0-2.0); EOS % 0.2 % (0-4.5); HEMATOCRIT 36.6 % (32.4-45.2); HEMOGLOBIN 12.8 GM/dL (10.7-15.3); MCHC 34.9 g/dl (32.0-36.0); MEAN CELL VOLUME 94.4 fl (80-96); MEAN PLT VOLUME 9.3 fl (7.5-11.1); MONO % 6.5 % (3.8-10.2); NEUT % 61.9 % (42.8-82.8); PLATELET COUNT 232 10^3/uL (134-434); RBC 3.88 M/mm3 (3.60-5.2); RDW 12.6 % (11.6-15.6); WHITE BLOOD COUNT 8.4 K/mm3 (4.0-10.0)
[2021-01-20 10:06] LABS: ALBUMIN 3.5 g/dl (3.4-5.0)
[2021-01-20 10:07] LABS: CALCIUM 8.7 mg/dL (8.5-10.1)
[2021-01-20 10:08] LABS: MAGNESIUM 1.9 mg/dL (1.8-2.4)
[2021-01-20 10:10] LABS: BILIRUBIN,TOTAL 0.4 mg/dL (0.2-1); BLOOD UREA NITROGEN 5.6 mg/dL (7-18); TOT PROT 6.1 g/dl (6.4-8.2)
[2021-01-20 10:20] LABS: CREATININE 0.6 mg/dL (0.55-1.3); PHOSPHOROUS 2.8 mg/dL (2.5-4.9)
[2021-01-20] MEDS: ACETAMINOPHEN 325 MG TABLET (FP) PO PRN ×2 (11:05→22:54)
[2021-01-20] MEDS: ONDANSETRON 4 MG/2 ML VIAL IVPUSH PRN ×2 (13:01→20:58)
[2021-01-20] MEDS: MELATONIN 5 MG TABLETS PO PRN (21:27)
[2021-01-21] MEDS ORDERED: PIPERACILLIN/TAZOBACTAM 3.375 GM VIAL IVPB ONE ×3 (02:40→17:16)
[2021-01-21] MEDS ORDERED: DEXTROSE 5%-WATER - 50 ML IVPB ONE ×3 (02:41→17:16)
[2021-01-21] MEDS: LACTATED RINGERS SOLUTION 1,000 ML IV SCH ×3 (02:53→18:10)
[2021-01-21] MEDS: PIPERACILLIN/TAZOB 3.375 GM 3.375 GM in DEXTROSE 5%-WATER - 50 ML IVPB SCH ×3 (02:53→17:27)
[2021-01-21] MEDS: NICOTINE 7 MG/24 HOURS TOPICAL PATCH TD SCH ×2 (03:03→14:55)
[2021-01-21] MEDS ORDERED: PT OWN MED DRAWER 7, Y5N ONE ×2 (05:57→09:04)
[2021-01-21] MEDS: ONDANSETRON 4 MG/2 ML VIAL IVPUSH PRN ×2 (05:59→23:48)
[2021-01-21] MEDS: oxyCODONE HCL 5 MG TABLET PO PRN ×3 (06:27→22:23)
[2021-01-21] MEDS: ACETAMINOPHEN 325 MG TABLET (FP) PO PRN ×3 (06:28→22:24)
[2021-01-21 07:51] LABS: BASO % 0.8 % (0-2.0); EOS % 1.6 % (0-4.5); HEMOGLOBIN 12.5 GM/dL (10.7-15.3); LYMPH % 52.5 % (8-40); MCH 33.1 pg (25.7-33.7); MCHC 34.9 g/dl (32.0-36.0); MEAN CELL VOLUME 94.9 fl (80-96); MEAN PLT VOLUME 8.9 fl (7.5-11.1); MONO % 7.2 % (3.8-10.2); NEUT % 37.9 % (42.8-82.8); PLATELET COUNT 220 10^3/uL (134-434); RBC 3.79 M/mm3 (3.60-5.2); RDW 12.8 % (11.6-15.6); WHITE BLOOD COUNT 6.2 K/mm3 (4.0-10.0)
[2021-01-21 08:12] LABS: ALBUMIN 3.3 g/dl (3.4-5.0); BLOOD UREA NITROGEN 5.2 mg/dL (7-18); CALCIUM 8.3 mg/dL (8.5-10.1); MAGNESIUM 1.8 mg/dL (1.8-2.4)
[2021-01-21 08:15] LABS: CREATININE 0.7 mg/dL (0.55-1.3)
[2021-01-21 08:16] LABS: PHOSPHOROUS 3.2 mg/dL (2.5-4.9)
[2021-01-21 08:17] LABS: BILIRUBIN,TOTAL 0.4 mg/dL (0.2-1)
[2021-01-21] MEDS: TAMSULOSIN HCL 0.4 MG CAP PO SCH (08:30)
[2021-01-21] MEDS: MELATONIN 5 MG TABLETS PO PRN (23:49)
[2021-01-22] MEDS ORDERED: DEXTROSE 5%-WATER - 50 ML IVPB ONE ×3 (02:43→16:11)
[2021-01-22] MEDS ORDERED: PIPERACILLIN/TAZOBACTAM 3.375 GM VIAL IVPB ONE ×3 (02:43→16:11)
[2021-01-22] MEDS: PIPERACILLIN/TAZOB 3.375 GM 3.375 GM in DEXTROSE 5%-WATER - 50 ML IVPB SCH ×2 (02:50→10:17)
[2021-01-22 05:50] VITALS: BP 115/73; PULSE 62; TEMP 98.6
[2021-01-22] MEDS: LACTATED RINGERS SOLUTION 1,000 ML IV SCH (06:17)
[2021-01-22] MEDS: oxyCODONE HCL 5 MG TABLET PO PRN ×2 (07:15→10:17)
[2021-01-22] MEDS: ACETAMINOPHEN 325 MG TABLET (FP) PO PRN ×2 (07:16→10:18)
[2021-01-22 07:54] LABS: EOS % 4.3 % (0-4.5); HEMOGLOBIN 12.9 GM/dL (10.7-15.3); LYMPH % 43.4 % (8-40); MCH 32.7 pg (25.7-33.7); MCHC 34.9 g/dl (32.0-36.0); MEAN CELL VOLUME 93.8 fl (80-96); MEAN PLT VOLUME 8.8 fl (7.5-11.1); MONO % 9.3 % (3.8-10.2); PLATELET COUNT 211 10^3/uL (134-434); RBC 3.94 M/mm3 (3.60-5.2); RDW 12.7 % (11.6-15.6); WHITE BLOOD COUNT 6.6 K/mm3 (4.0-10.0)
[2021-01-22 08:12] LABS: CALCIUM 8.8 mg/dL (8.5-10.1)
[2021-01-22 08:13] LABS: ALBUMIN 3.4 g/dl (3.4-5.0); BLOOD UREA NITROGEN 5.3 mg/dL (7-18); MAGNESIUM 2.1 mg/dL (1.8-2.4)
[2021-01-22 08:15] LABS: CREATININE 0.6 mg/dL (0.55-1.3)
[2021-01-22 08:16] LABS: PHOSPHOROUS 4.2 mg/dL (2.5-4.9)
[2021-01-22 08:17] LABS: BILIRUBIN,TOTAL 0.4 mg/dL (0.2-1); TOT PROT 6.1 g/dl (6.4-8.2)
[2021-01-22] MEDS: NICOTINE 7 MG/24 HOURS TOPICAL PATCH TD SCH (10:17)
[2021-01-22] MEDS: TAMSULOSIN HCL 0.4 MG CAP PO SCH (10:17)
[2021-01-22] MEDS: ONDANSETRON 4 MG/2 ML VIAL IVPUSH PRN (12:18)
== END 2021-01-22 17:56 | disposition home or self-care (01) | DRG 463 ==
LOC: JER 21:15 → JERBED 01-19 00:53 → J7W 01-19 18:07
PROVIDERS: ADMIT Internal Medicine; ATTEND Internal Medicine
PROC: 0T768DZ Dilation of Right Ureter with Intraluminal Device, Via Natural or Artificial Opening Endoscopic (ICD-10-PCS; principal; 2021-01-19 12:00)
DX: N13.6 Pyonephrosis (principal); D72.829 Elevated white blood cell count, unspecified; F17.210 Nicotine dependence, cigarettes, uncomplicated; R11.2 Nausea with vomiting, unspecified; E66.9 Obesity, unspecified; Z68.30 Body mass index [BMI] 30.0-30.9, adult; R50.82 Postprocedural fever
CPT/HCPCS: 36415; 74176-TC; 80053; 81003; 83735; 84100; 84702; 84703; 85025; 86850; 86900; 86901; 87086; 93005; 93010; 93970-TC; 94760; 99285-25; C9803; J0131; U0003; U0005

== ENCOUNTER 2021-02-12 19:59 | Emergency (ER) | payer OTHER ==
[2021-02-12 20:08] VITALS: BP 117/83; PULSE 81; TEMP 98.1; BMI 25.4
[2021-02-12] MEDS ORDERED: ACETAMINOPHEN 500 MG TABLET (FP) PO ONE (20:36)
[2021-02-12] MEDS ORDERED: ACETAMINOPHEN 500 MG TABLET (FP) ONE (20:40)
== END 2021-02-12 21:56 | disposition left against medical advice (07) ==
LOC: JER 19:59
DX: R51.9 Headache, unspecified (principal); H53.8 Other visual disturbances; V48.0XXA Car driver injured in noncollision transport accident in nontraffic accident, initial encounter
CPT/HCPCS: 70450-TC; 72125-TC; 72128-TC; 72131-TC; 84703; 99285-25

== ENCOUNTER 2021-02-16 04:40 | Day surgery (SDC) | payer OTHER ==
[2021-02-14 11:56] VITALS: BMI 26.4
[2021-02-16] MEDS ORDERED: PROPOFOL 20 ML ONE (13:08)
[2021-02-16] MEDS ORDERED: MIDAZOLAM HCL 2 MG/2 ML SINGLE DOSE VIAL ONE (13:08)
[2021-02-16] MEDS ORDERED: ceFAZolin SODIUM 1 GM VIAL IVPB ONE (13:30)
[2021-02-16] MEDS ORDERED: ceFAZolin SODIUM 1 GM VIAL ONE (13:51)
[2021-02-16] MEDS ORDERED: KETOROLAC TROMETHAMINE 30 MG/1 ML VIAL ONE (13:51)
[2021-02-16] MEDS ORDERED: DEXAMETHASONE SOD PHOSPHATE 4 MG/1 ML VIAL ONE (13:51)
[2021-02-16] MEDS ORDERED: ONDANSETRON 4 MG/2 ML VIAL IVPUSH PRN (14:54)
[2021-02-16] MEDS ORDERED: oxyCODONE HCL 5 MG TABLET PO PRN (14:54)
[2021-02-16] MEDS ORDERED: LACTATED RINGERS SOLUTION 1,000 ML IV SCH (15:00)
[2021-02-16] MEDS ORDERED: oxyCODONE HCL 5 MG TABLET ONE (16:29)
[2021-02-16 17:52] VITALS: BP 120/68; PULSE 68; TEMP 98
== END 2021-02-16 18:05 | disposition home or self-care (01) ==
LOC: JASU-SURG 04:40
PROVIDERS: ATTEND Urology
PROC: 0TF68ZZ Fragmentation in Right Ureter, Via Natural or Artificial Opening Endoscopic (ICD-10-PCS; principal; 2021-02-16 13:00)
PROC: 0T768DZ Dilation of Right Ureter with Intraluminal Device, Via Natural or Artificial Opening Endoscopic (ICD-10-PCS; 2021-02-16 13:00)
DX: N20.1 Calculus of ureter (principal)
CPT/HCPCS: 36415; 81025; 82360; 88300-TC; 94760

== ENCOUNTER 2021-05-04 13:04 | Emergency (ER) | payer OTHER ==
[2021-05-04 13:41] VITALS: BMI 29.0
[2021-05-04] MEDS ORDERED: ONDANSETRON 4 MG/2 ML VIAL IVPUSH ONE (13:55)
[2021-05-04] MEDS ORDERED: SODIUM CHLORIDE 0.9% 500 ML INFUS.BAG IV ONE (13:55)
[2021-05-04] MEDS ORDERED: ONDANSETRON 4 MG/2 ML VIAL ONE (14:04)
[2021-05-04 14:32] LABS: BASO % 0.7 % (0-2.0); EOS % 1.2 % (0-4.5); HEMATOCRIT 39.2 % (32.4-45.2); HEMOGLOBIN 13.6 GM/dL (10.7-15.3); LYMPH % 25.4 % (8-40); MCH 32.9 pg (25.7-33.7); MCHC 34.7 g/dl (32.0-36.0); MEAN CELL VOLUME 94.8 fl (80-96); MEAN PLT VOLUME 8.6 fl (7.5-11.1); MONO % 5.9 % (3.8-10.2); NEUT % 66.8 % (42.8-82.8); PLATELET COUNT 224 10^3/uL (134-434); RBC 4.13 M/mm3 (3.60-5.2); RDW 12.7 % (11.6-15.6); WHITE BLOOD COUNT 7.4 K/mm3 (4.0-10.0)
[2021-05-04 15:23] LABS: ALBUMIN 3.7 g/dl (3.4-5.0); ALK PHOS 60 U/L (45-117); ANION GAP 3 MMOL/L (8-16); BILIRUBIN,TOTAL 0.3 mg/dL (0.2-1); BLOOD UREA NITROGEN 6.6 mg/dL (7-18); CALCIUM 8.9 mg/dL (8.5-10.1); CHLORIDE 109 mmol/L (98-107); CO2 30 mmol/L (21-32); CREATININE 0.5 mg/dL (0.55-1.3); GLUCOSE,RANDOM 85 mg/dL (74-106); SGOT/AST 14 U/L (15-37); SGPT/ALT 17 U/L (13-61); SODIUM 141 mmol/L (136-145); TOT PROT 6.6 g/dl (6.4-8.2)
[2021-05-04 16:22] VITALS: BP 118/80; PULSE 84
== END 2021-05-04 16:22 | disposition home or self-care (01) ==
LOC: JER 13:04
PROC: 3E033GC Introduction of Other Therapeutic Substance into Peripheral Vein, Percutaneous Approach (ICD-10-PCS; principal; 2021-05-04)
DX: R11.0 Nausea (principal)
CPT/HCPCS: 36415; 80053; 84702; 84703; 85025; 99284-25

== ENCOUNTER 2021-06-13 18:00 | Emergency (ER) | payer OTHER ==
[2021-06-13 18:23] VITALS: BP 143/86; TEMP 99.7; BMI 30.2
[2021-06-13] MEDS ORDERED: ACETAMINOPHEN 500 MG TABLET (FP) PO ONE (19:00)
[2021-06-13] MEDS ORDERED: ACETAMINOPHEN 500 MG TABLET (FP) ONE (19:15)
[2021-06-13 20:27] LABS: EPI CELLS 7 /uL (0-25.1); HYALINE CASTS 0 /uL (0-3.1); PH,URINE 6.5 (5.0-8.0); URINE APPEARANCE CLEAR; URINE BACTERIA 24 /uL (0-1359); URINE BILIRUBIN NEGATIVE (NEGATIVE); URINE COLOR YELLOW; URINE GLUCOSE (UA) NEGATIVE (NEGATIVE); URINE KETONE NEGATIVE (NEGATIVE); URINE LEUK ESTERASE NEGATIVE (NEGATIVE); URINE NITRITE NEGATIVE (NEGATIVE); URINE PROTEIN NEGATIVE (NEGATIVE); URINE RBC 27 /uL (0-23.9); URINE WBC 2 /uL (0-25.8)
[2021-06-13 20:28] LABS: HCG,QUALITATIVE URINE Negative
[2021-06-13 20:41] VITALS: PULSE 87
[2021-06-14 16:09] LABS: SARS-CoV-2 NAA Detected (Not Detected)
[2021-06-16 14:39] LABS: HIV INTERPRETATION NEGATIVE (NEGATIVE); SYPHILIS W/ RPR CONF NON-REACTIVE (NONREACTIVE)
== END 2021-06-13 21:04 | disposition home or self-care (01) ==
LOC: JER 18:00
DX: U07.1 COVID-19 (principal)
CPT/HCPCS: 36415; 81003; 84703; 86780; 86803; 87086; 87389; 87491; 87517; 87591; 87804; 99283-25; C9803; U0003; U0005

== ENCOUNTER 2021-08-29 11:50 | Emergency (ER) | payer OTHER ==
[2021-08-29 12:20] VITALS: BP 114/74; PULSE 90; TEMP 98.5; BMI 30.2
[2021-08-29] MEDS ORDERED: SODIUM CHLORIDE 1,000 ML IV STA (12:31)
[2021-08-29] MEDS ORDERED: KETOROLAC TROMETHAMINE 30 MG/1 ML VIAL IVPUSH ONE (12:32)
[2021-08-29] MEDS ORDERED: KETOROLAC TROMETHAMINE 30 MG/1 ML VIAL ONE (13:16)
[2021-08-29 13:23] LABS: BASO % 0.6 % (0-2.0); EOS % 0.4 % (0-4.5); HEMATOCRIT 40.4 % (32.4-45.2); HEMOGLOBIN 13.8 GM/dL (10.7-15.3); LYMPH % 17.8 % (8-40); MCH 32.4 pg (25.7-33.7); MCHC 34.2 g/dl (32.0-36.0); MEAN CELL VOLUME 94.8 fl (80-96); MEAN PLT VOLUME 8.4 fl (7.5-11.1); MONO % 8.6 % (3.8-10.2); NEUT % 72.6 % (42.8-82.8); PLATELET COUNT 211 10^3/uL (134-434); RBC 4.26 M/mm3 (3.60-5.2); WHITE BLOOD COUNT 7.9 K/mm3 (4.0-10.0)
[2021-08-29 13:35] LABS: INR 1.12 (0.83-1.09); PROTHROMBIN TIME (PATIENT) 12.9 SEC (9.7-13.0)
[2021-08-29 13:47] LABS: ALBUMIN 3.7 g/dl (3.4-5.0); BLOOD UREA NITROGEN 5.5 mg/dL (7-18)
[2021-08-29 13:50] LABS: CREATININE 0.5 mg/dL (0.55-1.3)
[2021-08-29 13:52] LABS: BILIRUBIN,TOTAL 0.3 mg/dL (0.2-1); TOT PROT 6.8 g/dl (6.4-8.2)
[2021-08-29] MEDS ORDERED: ONDANSETRON 4 MG/2 ML VIAL IVPUSH ONE (14:12)
[2021-08-29] MEDS ORDERED: ONDANSETRON 4 MG/2 ML VIAL ONE (15:26)
[2021-08-29 15:52] LABS: EPI CELLS 8 /uL (0-25.1); HCG,QUALITATIVE URINE Negative; HYALINE CASTS 0 /uL (0-3.1); PH,URINE 6.5 (5.0-8.0); URINE APPEARANCE CLEAR; URINE BACTERIA 122 /uL (0-1359); URINE BILIRUBIN NEGATIVE (NEGATIVE); URINE COLOR YELLOW; URINE GLUCOSE (UA) NEGATIVE (NEGATIVE); URINE KETONE NEGATIVE (NEGATIVE); URINE LEUK ESTERASE NEGATIVE (NEGATIVE); URINE NITRITE NEGATIVE (NEGATIVE); URINE PROTEIN NEGATIVE (NEGATIVE); URINE RBC 25 /uL (0-23.9); URINE UROBILINOGEN 0.2 mg/dL (0.2-1.0); URINE WBC 9 /uL (0-25.8)
== END 2021-08-29 16:40 | disposition left against medical advice (07) ==
LOC: JER 11:50
PROC: 3E033GC Introduction of Other Therapeutic Substance into Peripheral Vein, Percutaneous Approach (ICD-10-PCS; principal; 2021-08-29)
DX: N20.0 Calculus of kidney (principal)
CPT/HCPCS: 36415; 80053; 81003; 84703; 85025; 85610; 86850; 86900; 86901; 87086; 99284-25

== ENCOUNTER 2022-08-26 12:11 | Emergency (ER) | payer OTHER ==
[2022-08-26 12:26] VITALS: BP 116/80; PULSE 108; RESP 16; TEMP 99.7; BMI 26.5
[2022-08-26] MEDS ORDERED: ACETAMINOPHEN 1000 MG/100 ML BAG IVPB ONE (13:50)
[2022-08-26] MEDS ORDERED: SODIUM CHLORIDE 0.9% 500 ML INFUS.BAG IV ONE (13:50)
[2022-08-26] MEDS ORDERED: ACETAMINOPHEN INJECTION 100 ML IVPB ONE (13:52)
[2022-08-26 15:09] LABS: BASO % 0.8 % (0-2.0); EOS % 1.8 % (0-4.5); HEMATOCRIT 43.1 % (32.4-45.2); HEMOGLOBIN 14.8 GM/dL (10.7-15.3); LYMPH % 34.8 % (8-40); MCH 32.3 pg (25.7-33.7); MCHC 34.4 g/dl (32.0-36.0); MEAN PLT VOLUME 9.4 fl (7.5-11.1); MONO % 6.3 % (3.8-10.2); NEUT % 56.3 % (42.8-82.8); PLATELET COUNT 220 10^3/uL (134-434); RBC 4.59 M/mm3 (3.60-5.2); RDW 12.7 % (11.6-15.6); WHITE BLOOD COUNT 6.3 K/mm3 (4.0-10.0)
[2022-08-26 15:10] LABS: PH,URINE 7.5 (5.0-8.0); URINE APPEARANCE CLEAR; URINE BILIRUBIN NEGATIVE (NEGATIVE); URINE COLOR YELLOW; URINE GLUCOSE (UA) NEGATIVE (NEGATIVE); URINE KETONE NEGATIVE (NEGATIVE); URINE LEUK ESTERASE NEGATIVE (NEGATIVE); URINE NITRITE NEGATIVE (NEGATIVE); URINE PROTEIN NEGATIVE (NEGATIVE); URINE UROBILINOGEN 0.2 mg/dL (0.2-1.0)
[2022-08-26 15:15] LABS: PROTHROMBIN TIME (PATIENT) 11.6 SEC (9.7-13.0)
[2022-08-26 15:31] LABS: CALCIUM 9.1 mg/dL (8.5-10.1)
[2022-08-26 15:32] LABS: BLOOD UREA NITROGEN 7.8 mg/dL (7-18)
[2022-08-26 15:35] LABS: CREATININE 0.4 mg/dL (0.55-1.3)
== END 2022-08-26 19:47 | disposition left against medical advice (07) ==
LOC: JERFT 12:11 → JER 12:11
PROC: 3E033NZ Introduction of Analgesics, Hypnotics, Sedatives into Peripheral Vein, Percutaneous Approach (ICD-10-PCS; principal; 2022-08-26)
DX: N64.4 Mastodynia (principal); R30.0 Dysuria
CPT/HCPCS: 36415; 74176-TC; 76642-TC-RT; 80048; 81003; 83605; 84703; 85025; 85610; 87040; 87086; 99285-25

== ENCOUNTER 2022-10-12 21:34 | Inpatient (IN) | payer OTHER ==
[2022-10-12] MEDS ORDERED: morphine SULFATE 4 MG/ML VIAL ONE (21:53)
[2022-10-12] MEDS ORDERED: morphine CARPU-JECT 4 MG/1 ML DISP.SYRIN IVPUSH ONE (21:53)
[2022-10-12] MEDS ORDERED: LACTATED RINGERS SOLUTION 1000 ML INFUS.BAG IV ONE (21:53)
[2022-10-12] MEDS ORDERED: SODIUM CHLORIDE 500 ML IV STA (21:55)
[2022-10-12] MEDS ORDERED: ONDANSETRON 4 MG/2 ML VIAL ONE (21:56)
[2022-10-12 22:10] LABS: EPI CELLS 28 /uL (0-25.1); HYALINE CASTS 1 /uL (0-3.1); URINE APPEARANCE CLOUDY; URINE BACTERIA 183 /uL (0-1359); URINE BILIRUBIN NEGATIVE (NEGATIVE); URINE COLOR ORANGE; URINE GLUCOSE (UA) NEGATIVE (NEGATIVE); URINE KETONE NEGATIVE (NEGATIVE); URINE LEUK ESTERASE TRACE (NEGATIVE); URINE NITRITE NEGATIVE (NEGATIVE); URINE PROTEIN TRACE (NEGATIVE); URINE RBC 5802 /uL (0-23.9); URINE UROBILINOGEN 0.2 mg/dL (0.2-1.0); URINE WBC 62 /uL (0-25.8)
[2022-10-12 22:16] LABS: BASO % 0.8 % (0-2.0); EOS % 1.2 % (0-4.5); HEMATOCRIT 39.4 % (32.4-45.2); HEMOGLOBIN 13.9 GM/dL (10.7-15.3); LYMPH % 41.1 % (8-40); MCH 32.6 pg (25.7-33.7); MCHC 35.2 g/dl (32.0-36.0); MEAN CELL VOLUME 92.6 fl (80-96); MEAN PLT VOLUME 8.9 fl (7.5-11.1); MONO % 7.3 % (3.8-10.2); NEUT % 49.6 % (42.8-82.8); PLATELET COUNT 289 10^3/uL (134-434); RBC 4.25 M/mm3 (3.60-5.2); RDW 12.4 % (11.6-15.6); WHITE BLOOD COUNT 8.1 K/mm3 (4.0-10.0)
[2022-10-12 22:24] LABS: INR 0.96 (0.83-1.09); PROTHROMBIN TIME (PATIENT) 11.1 SEC (9.7-13.0)
[2022-10-12 22:26] LABS: ACTIVATED PTT 29.9 SECONDS (25.2-36.5)
[2022-10-12 22:34] LABS: POTASSIUM 3.8 mmol/L (3.5-5.1)
[2022-10-12 22:36] LABS: CALCIUM 9.5 mg/dL (8.5-10.1)
[2022-10-12] MEDS ORDERED: KETOROLAC TROMETHAMINE 15 MG/ML VIAL IVPUSH ONE (22:36)
[2022-10-12 22:37] LABS: BLOOD UREA NITROGEN 7.9 mg/dL (7-18)
[2022-10-12] MEDS ORDERED: KETOROLAC TROMETHAMINE 15 MG/ML VIAL ONE (22:37)
[2022-10-12 22:40] LABS: CREATININE 0.6 mg/dL (0.55-1.3)
[2022-10-12 22:42] LABS: BILIRUBIN,TOTAL 0.3 mg/dL (0.2-1); TOT PROT 7.4 g/dl (6.4-8.2)
[2022-10-13] MEDS ORDERED: TAMSULOSIN HCL 0.4 MG CAP PO ONE (00:05)
[2022-10-13] MEDS ORDERED: TAMSULOSIN HCL 0.4 MG CAP ONE (00:06)
[2022-10-13] MEDS ORDERED: ACETAMINOPHEN INJECTION 100 ML IVPB ONE (00:20)
[2022-10-13] MEDS ORDERED: ACETAMINOPHEN 1000 MG/100 ML BAG IVPB ONE (00:24)
[2022-10-13] MEDS: ONDANSETRON 4 MG/2 ML VIAL IVPUSH PRN ×2 (04:05→19:49)
[2022-10-13] MEDS: SODIUM CHLORIDE 1,000 ML IV SCH (06:31)
[2022-10-13] MEDS: POLYETHYLENE GLYCOL (HEALTHYLAX) 3350 17 GM PACKET PO SCH ×3 (06:31→21:35)
[2022-10-13 07:54] LABS: BASO % 0.9 % (0-2.0); EOS % 1.6 % (0-4.5); HEMATOCRIT 37.2 % (32.4-45.2); HEMOGLOBIN 12.7 GM/dL (10.7-15.3); LYMPH % 41.7 % (8-40); MCHC 34.2 g/dl (32.0-36.0); MEAN CELL VOLUME 93.4 fl (80-96); MEAN PLT VOLUME 8.3 fl (7.5-11.1); MONO % 7.3 % (3.8-10.2); NEUT % 48.5 % (42.8-82.8); PLATELET COUNT 267 10^3/uL (134-434); RBC 3.98 M/mm3 (3.60-5.2); RDW 12.6 % (11.6-15.6); WHITE BLOOD COUNT 6.6 K/mm3 (4.0-10.0)
[2022-10-13 08:02] LABS: INR 1.05 (0.83-1.09); PROTHROMBIN TIME (PATIENT) 12.2 SEC (9.7-13.0)
[2022-10-13 08:13] LABS: POTASSIUM 3.9 mmol/L (3.5-5.1)
[2022-10-13 08:15] LABS: CALCIUM 8.6 mg/dL (8.5-10.1)
[2022-10-13 08:16] LABS: ALBUMIN 3.2 g/dl (3.4-5.0); BLOOD UREA NITROGEN 7.3 mg/dL (7-18)
[2022-10-13 08:19] LABS: CREATININE 0.6 mg/dL (0.55-1.3); PHOSPHOROUS 3.3 mg/dL (2.5-4.9)
[2022-10-13 08:20] LABS: BILIRUBIN,TOTAL 0.4 mg/dL (0.2-1); TOT PROT 6.2 g/dl (6.4-8.2)
[2022-10-13] MEDS: NICOTINE 21 MG/24 HOURS TOPICAL PATCH TD SCH (09:06)
[2022-10-13] MEDS: TAMSULOSIN HCL 0.4 MG CAP PO SCH (09:06)
[2022-10-13] MEDS ORDERED: KETOROLAC TROMETHAMINE 15 MG/ML VIAL IVPUSH ONE (09:32)
[2022-10-13] MEDS: CEFTRIAXONE 1 GM in DEXTROSE 5%-WATER - 50 ML IVPB SCH (10:03)
[2022-10-13] MEDS: morphine SULFATE 4 MG/ML VIAL IVPUSH PRN ×3 (13:40→22:21)
[2022-10-14] MEDS: morphine SULFATE 4 MG/ML VIAL IVPUSH PRN ×4 (03:30→21:36)
[2022-10-14] MEDS: SODIUM CHLORIDE 1,000 ML IV SCH ×2 (05:49→07:24)
[2022-10-14] MEDS: POLYETHYLENE GLYCOL (HEALTHYLAX) 3350 17 GM PACKET PO SCH ×3 (05:50→21:34)
[2022-10-14] MEDS: ACETAMINOPHEN 1000 MG/100 ML BAG IVPB PRN ×2 (08:48→18:21)
[2022-10-14 08:57] LABS: HEMATOCRIT 38.1 % (32.4-45.2); HEMOGLOBIN 13.3 GM/dL (10.7-15.3); MCH 32.8 pg (25.7-33.7); MCHC 35.1 g/dl (32.0-36.0); MEAN CELL VOLUME 93.5 fl (80-96); MEAN PLT VOLUME 8.4 fl (7.5-11.1); PLATELET COUNT 261 10^3/uL (134-434); RBC 4.07 M/mm3 (3.60-5.2); RDW 12.7 % (11.6-15.6); WHITE BLOOD COUNT 6.1 K/mm3 (4.0-10.0)
[2022-10-14 08:58] LABS: CHLORIDE 106 mmol/L (98-107); SODIUM 138 mmol/L (136-145)
[2022-10-14 08:59] LABS: ANION GAP 3 MMOL/L (8-16); CALCIUM 8.8 mg/dL (8.5-10.1); CO2 29 mmol/L (21-32); GLUCOSE,RANDOM 87 mg/dL (74-106)
[2022-10-14 09:00] LABS: BLOOD UREA NITROGEN 4.8 mg/dL (7-18)
[2022-10-14 09:03] LABS: CREATININE 0.5 mg/dL (0.55-1.3)
[2022-10-14] MEDS: TAMSULOSIN HCL 0.4 MG CAP PO SCH (09:05)
[2022-10-14] MEDS: CEFTRIAXONE 1 GM in DEXTROSE 5%-WATER - 50 ML IVPB SCH (09:05)
[2022-10-14] MEDS: NICOTINE 21 MG/24 HOURS TOPICAL PATCH TD SCH (09:05)
[2022-10-14] MEDS ORDERED: BISACODYL 5 MG TABLET.DR (FP) PO ONE (13:30)
[2022-10-14] MEDS: PANTOPRAZOLE 40 MG TABLET PO SCH (13:43)
[2022-10-14] MEDS ORDERED: KETOROLAC TROMETHAMINE 30 MG/1 ML VIAL IVPUSH ONE (13:45)
[2022-10-14] MEDS ORDERED: KETOROLAC TROMETHAMINE 15 MG/ML VIAL IM PRN (18:54)
[2022-10-14] MEDS: MELATONIN 5 MG TABLETS PO SCH (21:34)
[2022-10-14] MEDS ORDERED: SENNOSIDES 8.6MG TABLET (FP) PO SCH (22:00)
[2022-10-15] MEDS: morphine SULFATE 4 MG/ML VIAL IVPUSH PRN ×6 (02:28→23:00)
[2022-10-15] MEDS: SODIUM CHLORIDE 1,000 ML IV SCH ×2 (03:36→06:15)
[2022-10-15] MEDS: POLYETHYLENE GLYCOL (HEALTHYLAX) 3350 17 GM PACKET PO SCH ×3 (06:10→21:50)
[2022-10-15] MEDS: TAMSULOSIN HCL 0.4 MG CAP PO SCH (07:54)
[2022-10-15] MEDS ORDERED: ALPRAZolam 0.25 MG TABLET PO ONE ×2 (09:28→10:15)
[2022-10-15] MEDS: CEFTRIAXONE 1 GM in DEXTROSE 5%-WATER - 50 ML IVPB SCH (09:31)
[2022-10-15] MEDS: PANTOPRAZOLE 40 MG TABLET PO SCH (09:32)
[2022-10-15] MEDS: NICOTINE 21 MG/24 HOURS TOPICAL PATCH TD SCH (09:34)
[2022-10-15] MEDS ORDERED: ALPRAZolam 1 MG TABLET PO ONE (10:00)
[2022-10-15 11:37] LABS: HEMATOCRIT 39.9 % (32.4-45.2); HEMOGLOBIN 13.5 GM/dL (10.7-15.3); MCH 31.9 pg (25.7-33.7); MCHC 33.8 g/dl (32.0-36.0); MEAN CELL VOLUME 94.3 fl (80-96); MEAN PLT VOLUME 8.4 fl (7.5-11.1); PLATELET COUNT 254 10^3/uL (134-434); RBC 4.23 M/mm3 (3.60-5.2); RDW 12.6 % (11.6-15.6); WHITE BLOOD COUNT 5.5 K/mm3 (4.0-10.0)
[2022-10-15 11:54] LABS: POTASSIUM 4.1 mmol/L (3.5-5.1)
[2022-10-15 11:57] LABS: BLOOD UREA NITROGEN 4.6 mg/dL (7-18)
[2022-10-15 11:59] LABS: CREATININE 0.5 mg/dL (0.55-1.3)
[2022-10-15] MEDS ORDERED: KETOROLAC TROMETHAMINE 15 MG/ML VIAL IM PRN (18:56)
[2022-10-15] MEDS ORDERED: KETOROLAC TROMETHAMINE 15 MG/ML VIAL IVPUSH ONE (19:00)
[2022-10-15] MEDS: SENNOSIDES 8.6MG TABLET (FP) PO SCH (21:14)
[2022-10-15] MEDS: MELATONIN 5 MG TABLETS PO SCH (21:14)
[2022-10-15] MEDS: ACETAMINOPHEN 1000 MG/100 ML BAG IVPB PRN (21:30)
[2022-10-16] MEDS: morphine SULFATE 4 MG/ML VIAL IVPUSH PRN ×2 (03:38→08:26)
[2022-10-16] MEDS: SODIUM CHLORIDE 1,000 ML IV SCH (04:32)
[2022-10-16] MEDS: ACETAMINOPHEN 1000 MG/100 ML BAG IVPB PRN ×2 (04:32→13:09)
[2022-10-16] MEDS: POLYETHYLENE GLYCOL (HEALTHYLAX) 3350 17 GM PACKET PO SCH ×3 (05:54→21:03)
[2022-10-16] MEDS: TAMSULOSIN HCL 0.4 MG CAP PO SCH (08:26)
[2022-10-16] MEDS: NICOTINE 21 MG/24 HOURS TOPICAL PATCH TD SCH (09:26)
[2022-10-16] MEDS: PANTOPRAZOLE 40 MG TABLET PO SCH (09:26)
[2022-10-16] MEDS: ALPRAZolam 1 MG TABLET PO PRN (09:47)
[2022-10-16] MEDS ORDERED: KETOROLAC TROMETHAMINE 15 MG/ML VIAL IM PRN (10:08)
[2022-10-16 10:59] LABS: HEMATOCRIT 40.1 % (32.4-45.2); HEMOGLOBIN 13.7 GM/dL (10.7-15.3); MCH 32.2 pg (25.7-33.7); MCHC 34.2 g/dl (32.0-36.0); MEAN CELL VOLUME 94.2 fl (80-96); MEAN PLT VOLUME 8.7 fl (7.5-11.1); PLATELET COUNT 250 10^3/uL (134-434); RBC 4.25 M/mm3 (3.60-5.2); RDW 12.6 % (11.6-15.6); WHITE BLOOD COUNT 6.5 K/mm3 (4.0-10.0)
[2022-10-16 11:11] LABS: POTASSIUM 4.3 mmol/L (3.5-5.1)
[2022-10-16 11:17] LABS: CALCIUM 9.1 mg/dL (8.5-10.1)
[2022-10-16 11:21] LABS: CREATININE 0.5 mg/dL (0.55-1.3)
[2022-10-16] MEDS ORDERED: ALPRAZolam 0.25 MG TABLET PO ONE (13:15)
[2022-10-16] MEDS ORDERED: ONDANSETRON 4 MG/2 ML VIAL IVPUSH PRN (14:08)
[2022-10-16] MEDS ORDERED: PROPOFOL 40 ML ONE (14:23)
[2022-10-16] MEDS ORDERED: ceFAZolin SODIUM 1 GM VIAL IVPB ONE (14:29)
[2022-10-16] MEDS ORDERED: ONDANSETRON 4 MG/2 ML VIAL ONE (14:59)
[2022-10-16] MEDS ORDERED: ceFAZolin SODIUM 1 GM VIAL ONE ×2 (14:59)
[2022-10-16] MEDS ORDERED: KETOROLAC TROMETHAMINE 30 MG/1 ML VIAL ONE (14:59)
[2022-10-16] MEDS ORDERED: DEXAMETHASONE SOD PHOSPHATE 4 MG/1 ML VIAL ONE (14:59)
[2022-10-16] MEDS: oxyCODONE HCL 5 MG TABLET PO PRN ×2 (17:12→21:03)
[2022-10-16 20:15] LABS: INR 1.07 (0.83-1.09); PROTHROMBIN TIME (PATIENT) 12.4 SEC (9.7-13.0)
[2022-10-16 20:18] LABS: ACTIVATED PTT 29.2 SECONDS (25.2-36.5)
[2022-10-16] MEDS: MELATONIN 5 MG TABLETS PO SCH (21:03)
[2022-10-16] MEDS: SENNOSIDES 8.6MG TABLET (FP) PO SCH (21:03)
[2022-10-16] MEDS: KETOROLAC TROMETHAMINE 30 MG/1 ML VIAL IVPUSH PRN (22:47)
[2022-10-17 02:56] VITALS: RESP 20
[2022-10-17] MEDS: KETOROLAC TROMETHAMINE 30 MG/1 ML VIAL IVPUSH PRN ×2 (03:47→12:53)
[2022-10-17] MEDS: SODIUM CHLORIDE 1,000 ML IV SCH (03:50)
[2022-10-17] MEDS: POLYETHYLENE GLYCOL (HEALTHYLAX) 3350 17 GM PACKET PO SCH (05:29)
[2022-10-17] MEDS: PANTOPRAZOLE 40 MG TABLET PO SCH (09:01)
[2022-10-17] MEDS: NICOTINE 21 MG/24 HOURS TOPICAL PATCH TD SCH (09:01)
[2022-10-17] MEDS: TAMSULOSIN HCL 0.4 MG CAP PO SCH (09:01)
[2022-10-17] MEDS: ALPRAZolam 1 MG TABLET PO PRN (09:02)
[2022-10-17 09:46] LABS: HEMATOCRIT 40.5 % (32.4-45.2); MCH 32.4 pg (25.7-33.7); MCHC 34.5 g/dl (32.0-36.0); MEAN PLT VOLUME 9.1 fl (7.5-11.1); PLATELET COUNT 237 10^3/uL (134-434); RBC 4.31 M/mm3 (3.60-5.2); RDW 12.3 % (11.6-15.6); WHITE BLOOD COUNT 7.7 K/mm3 (4.0-10.0)
[2022-10-17 10:05] LABS: POTASSIUM 3.9 mmol/L (3.5-5.1)
[2022-10-17] MEDS ORDERED: BISACODYL 10 MG SUPP.RECT PR ONE (10:06)
[2022-10-17 10:09] LABS: BLOOD UREA NITROGEN 7.9 mg/dL (7-18)
[2022-10-17 10:12] LABS: CREATININE 0.6 mg/dL (0.55-1.3)
[2022-10-17 12:27] VITALS: BP 144/88; PULSE 98; TEMP 98.7
== END 2022-10-17 16:00 | disposition home or self-care (01) | DRG 465 ==
LOC: JER 21:34 → JERBED 10-13 00:40 → J6S 10-13 03:24
PROVIDERS: ADMIT Internal Medicine; ATTEND Internal Medicine
PROC: 0T778DZ Dilation of Left Ureter with Intraluminal Device, Via Natural or Artificial Opening Endoscopic (ICD-10-PCS; principal; 2022-10-16 14:00)
PROC: BT1FZZZ Fluoroscopy of Left Kidney, Ureter and Bladder (ICD-10-PCS; 2022-10-16 14:00)
DX: N20.1 Calculus of ureter (principal); N13.8 Other obstructive and reflux uropathy; N20.0 Calculus of kidney; E07.9 Disorder of thyroid, unspecified; N23 Unspecified renal colic; R31.9 Hematuria, unspecified; F17.210 Nicotine dependence, cigarettes, uncomplicated; K21.9 Gastro-esophageal reflux disease without esophagitis; K59.00 Constipation, unspecified
CPT/HCPCS: 0241U-QW; 36415; 74018-TC-FY; 74176-TC; 76000-TC-FY; 76775-TC; 80048; 80053; 81003; 83735; 84100; 84702; 84703; 85025; 85027; 85610; 85730; 86850; 86900; 86901; 87086; 93005; 93010; 94760; 99285-25; C1747; C2617

== ENCOUNTER → 2022-10-24 | Day surgery (SDC) | payer OTHER ==
[~2022-10-24] MED LIST: ACETAMINOPHEN 1000 MG/100 ML BAG IVPB ONE; ACETAMINOPHEN INJECTION 100 ML IVPB ONE; DEXAMETHASONE SOD PHOSPHATE 4 MG/1 ML VIAL ONE; KETOROLAC TROMETHAMINE 30 MG/1 ML VIAL ONE; LACTATED RINGERS SOLUTION 1,000 ML IV SCH; LIDOCAINE HCL/PF 2% SDV 5ML VIAL ONE; MIDAZOLAM HCL 2 MG/2 ML SINGLE DOSE VIAL ONE; ONDANSETRON *ODT* 4 MG TABLET ONE; ONDANSETRON 4 MG/2 ML VIAL IVPUSH PRN; ONDANSETRON 4 MG/2 ML VIAL ONE; PROMETHAZINE HCL 25 MG/1 ML VIAL IVPB PRN; PROPOFOL 20 ML ONE; ceFAZolin SODIUM 1 GM VIAL IVPB ONE; ceFAZolin SODIUM 1 GM VIAL ONE; oxyCODONE HCL 5 MG TABLET ONE; oxyCODONE HCL 5 MG TABLET PO PRN
[2022-10-24 18:32] VITALS: BP 123/82; PULSE 60; RESP 20; TEMP 98
== END | disposition home or self-care (01) ==
LOC: JASU-SURG 04:16
PROVIDERS: ATTEND Urology
PROC: 0TC18ZZ Extirpation of Matter from Left Kidney, Via Natural or Artificial Opening Endoscopic (ICD-10-PCS; principal; 2022-10-24 15:00)
PROC: 0T778DZ Dilation of Left Ureter with Intraluminal Device, Via Natural or Artificial Opening Endoscopic (ICD-10-PCS; 2022-10-24 15:00)
PROC: BT1FYZZ Fluoroscopy of Left Kidney, Ureter and Bladder using Other Contrast (ICD-10-PCS; 2022-10-24 15:00)
DX: N20.0 Calculus of kidney (principal)
CPT/HCPCS: 76000-TC-FY; 81025; 94760; C1747; C1769; C1894; Q0162

== ENCOUNTER 2023-04-16 16:21 | Emergency (ER) | payer OTHER ==
[2023-04-16 16:30] VITALS: RESP 18; BMI 28.3
[2023-04-16] MEDS ORDERED: SODIUM CHLORIDE 1,000 ML IV STA ×2 (17:18→19:40)
[2023-04-16] MEDS ORDERED: ACETAMINOPHEN 1000 MG/100 ML BAG IVPB ONE (17:18)
[2023-04-16] MEDS ORDERED: ONDANSETRON 4 MG/2 ML VIAL IVPUSH ONE (17:18)
[2023-04-16] MEDS ORDERED: ONDANSETRON 4 MG/2 ML VIAL ONE (17:35)
[2023-04-16] MEDS ORDERED: ACETAMINOPHEN INJECTION 100 ML IVPB ONE (17:35)
[2023-04-16 17:45] LABS: BASO % 0.8 % (0-2.0); EOS % 2.6 % (0-4.5); HEMOGLOBIN 14.4 GM/dL (10.7-15.3); LYMPH % 33.4 % (8-40); MCH 32.3 pg (25.7-33.7); MCHC 34.2 g/dl (32.0-36.0); MEAN CELL VOLUME 94.5 fl (80-96); MEAN PLT VOLUME 8.7 fl (7.5-11.1); MONO % 6.1 % (3.8-10.2); NEUT % 57.1 % (42.8-82.8); PLATELET COUNT 256 10^3/uL (134-434); RBC 4.44 M/mm3 (3.60-5.2)
[2023-04-16 17:51] LABS: INR 1.04 (0.83-1.09); PROTHROMBIN TIME (PATIENT) 12.1 SEC (9.7-13.0)
[2023-04-16 17:53] LABS: ACTIVATED PTT 31.3 SECONDS (25.2-36.5)
[2023-04-16 17:54] LABS: POTASSIUM 3.7 mmol/L (3.5-5.1)
[2023-04-16 17:56] LABS: CALCIUM 9.2 mg/dL (8.5-10.1)
[2023-04-16 18:00] LABS: CREATININE 0.7 mg/dL (0.55-1.3)
[2023-04-16 18:01] LABS: BILIRUBIN,TOTAL 0.5 mg/dL (0.2-1); TOT PROT 7.2 g/dl (6.4-8.2)
[2023-04-16] MEDS ORDERED: KETOROLAC TROMETHAMINE 30 MG/1 ML VIAL IVPUSH ONE (18:14)
[2023-04-16] MEDS ORDERED: KETOROLAC TROMETHAMINE 30 MG/1 ML VIAL ONE (18:17)
[2023-04-16] MEDS ORDERED: morphine CARPU-JECT 4 MG/1 ML DISP.SYRIN IVPUSH ONE (19:39)
[2023-04-16] MEDS ORDERED: morphine SULFATE 4 MG/ML VIAL ONE (19:46)
[2023-04-16] MEDS ORDERED: METOCLOPRAMIDE HCL INJECTION 10 MG/2 ML VIAL IVPUSH ONE (19:52)
[2023-04-16] MEDS ORDERED: METOCLOPRAMIDE HCL INJECTION 10 MG/2 ML VIAL ONE (19:53)
[2023-04-16 20:46] LABS: HCG,QUALITATIVE URINE Negative
[2023-04-16 21:07] LABS: PH,URINE 7.5 (5.0-8.0); URINE APPEARANCE CLEAR; URINE BILIRUBIN NEGATIVE (NEGATIVE); URINE COLOR YELLOW; URINE GLUCOSE (UA) NEGATIVE (NEGATIVE); URINE KETONE NEGATIVE (NEGATIVE); URINE LEUK ESTERASE NEGATIVE (NEGATIVE); URINE NITRITE NEGATIVE (NEGATIVE); URINE PROTEIN NEGATIVE (NEGATIVE); URINE UROBILINOGEN 0.2 mg/dL (0.2-1.0)
[2023-04-16 21:27] VITALS: BP 97/62; PULSE 68; TEMP 98.1
== END 2023-04-16 21:27 | disposition home or self-care (01) ==
LOC: JER 16:21
PROC: 3E033NZ Introduction of Analgesics, Hypnotics, Sedatives into Peripheral Vein, Percutaneous Approach (ICD-10-PCS; principal; 2023-04-16)
PROC: 3E0333Z Introduction of Anti-inflammatory into Peripheral Vein, Percutaneous Approach (ICD-10-PCS; 2023-04-16)
PROC: 3E033GC Introduction of Other Therapeutic Substance into Peripheral Vein, Percutaneous Approach (ICD-10-PCS; 2023-04-16)
PROC: 3E033GC Introduction of Other Therapeutic Substance into Peripheral Vein, Percutaneous Approach (ICD-10-PCS; 2023-04-16)
PROC: 3E033GC Introduction of Other Therapeutic Substance into Peripheral Vein, Percutaneous Approach (ICD-10-PCS; 2023-04-16)
PROC: 3E0337Z Introduction of Electrolytic and Water Balance Substance into Peripheral Vein, Percutaneous Approach (ICD-10-PCS; 2023-04-16)
PROC: 3E0337Z Introduction of Electrolytic and Water Balance Substance into Peripheral Vein, Percutaneous Approach (ICD-10-PCS; 2023-04-16)
DX: R10.33 Periumbilical pain (principal); R11.2 Nausea with vomiting, unspecified; R10.31 Right lower quadrant pain; R10.11 Right upper quadrant pain; R10.84 Generalized abdominal pain; K52.9 Noninfective gastroenteritis and colitis, unspecified
CPT/HCPCS: 36415; 74177-TC; 76705-TC; 80053; 81003; 83690; 84478; 84703; 85025; 85610; 85730; 86850; 86900; 86901; 87086; 93005; 93010; 99285-25

== ENCOUNTER 2023-05-13 15:58 | Emergency (ER) | payer OTHER ==
[2023-05-13 16:11] VITALS: BP 122/84; PULSE 95; RESP 17; TEMP 99.6
[2023-05-13] MEDS ORDERED: ACETAMINOPHEN 500 MG TABLET (FP) PO ONE (16:36)
[2023-05-13] MEDS ORDERED: ACETAMINOPHEN 500 MG TABLET (FP) ONE (16:47)
[2023-05-13 17:11] LABS: PH,URINE 8.5 (5.0-8.0); URINE APPEARANCE CLEAR; URINE BILIRUBIN NEGATIVE (NEGATIVE); URINE COLOR YELLOW; URINE GLUCOSE (UA) NEGATIVE (NEGATIVE); URINE KETONE NEGATIVE (NEGATIVE); URINE LEUK ESTERASE NEGATIVE (NEGATIVE); URINE NITRITE NEGATIVE (NEGATIVE); URINE PROTEIN NEGATIVE (NEGATIVE); URINE UROBILINOGEN 0.2 mg/dL (0.2-1.0)
[2023-05-13 17:28] LABS: HCG,QUALITATIVE URINE NEGATIVE
[2023-05-13] MEDS ORDERED: KETOROLAC TROMETHAMINE 15 MG/ML VIAL IVPUSH ONE (17:39)
[2023-05-13] MEDS ORDERED: KETOROLAC TROMETHAMINE 15 MG/ML VIAL ONE (17:43)
[2023-05-13 18:41] LABS: EOS % 0.7 % (0-4.5); HEMATOCRIT 41.1 % (32.4-45.2); HEMOGLOBIN 13.8 GM/dL (10.7-15.3); LYMPH % 25.2 % (8-40); MCH 31.9 pg (25.7-33.7); MCHC 33.6 g/dl (32.0-36.0); MEAN PLT VOLUME 8.8 fl (7.5-11.1); MONO % 14.8 % (3.8-10.2); NEUT % 58.3 % (42.8-82.8); PLATELET COUNT 225 10^3/uL (134-434); RBC 4.32 M/mm3 (3.60-5.2); WHITE BLOOD COUNT 4.4 K/mm3 (4.0-10.0)
[2023-05-13 18:51] LABS: CHLORIDE 102 mmol/L (98-107); POTASSIUM 3.7 mmol/L (3.5-5.1); SODIUM 139 mmol/L (136-145)
[2023-05-13 18:53] LABS: ANION GAP 6 mmol/L (4-13); BLOOD UREA NITROGEN 5.3 mg/dL (7-18); CALCIUM 8.6 mg/dL (8.5-10.1); CO2 30 mmol/L (21-32); GLUCOSE,RANDOM 105 mg/dL (74-106)
[2023-05-13 18:54] LABS: ALBUMIN 3.6 g/dl (3.4-5.0)
[2023-05-13 18:56] LABS: SGOT/AST 14 U/L (15-37); SGPT/ALT 15 U/L (13-61)
[2023-05-13 18:57] LABS: CREATININE 0.6 mg/dL (0.55-1.3)
[2023-05-13 18:58] LABS: BILIRUBIN,TOTAL < 0.1 mg/dL (0.2-1); TOT PROT 6.7 g/dl (6.4-8.2)
[2023-05-13 18:59] LABS: ALK PHOS 56 U/L (45-117)
== END 2023-05-13 19:57 | disposition left against medical advice (07) ==
LOC: JERFT 15:58
PROC: 3E0333Z Introduction of Anti-inflammatory into Peripheral Vein, Percutaneous Approach (ICD-10-PCS; principal; 2023-05-13)
DX: R10.31 Right lower quadrant pain (principal); J06.9 Acute upper respiratory infection, unspecified; R09.81 Nasal congestion; Z20.822 Contact with and (suspected) exposure to COVID-19
CPT/HCPCS: 0241U-QW; 36415; 71046-TC-FY; 80053; 81003; 83605; 84703; 85025; 99284-25

== ENCOUNTER 2023-09-21 00:27 | Emergency (ER) | payer OTHER ==
[2023-09-21] MEDS ORDERED: ALBUTEROL SO4 2.5/IPRATROPIUM 0.5 INH SOL 3 ML VIAL.NEB. NEB ONE (00:34)
[2023-09-21 00:40] VITALS: BP 155/95; PULSE 89; RESP 20; TEMP 99.9; BMI 28.3
[2023-09-21] MEDS ORDERED: DEXAMETHASONE SOD PHOSPHATE 10 MG/1 ML VIAL ONE (01:33)
[2023-09-21] MEDS: DEXAMETHASONE SOD PHOSPHATE 10 MG/1 ML VIAL PO ONE (01:34)
[2023-09-21] MEDS: ALBUTEROL SO4 2.5/IPRATROPIUM 0.5 INH SOL 3 ML VIAL.NEB. NEB ONE (01:34)
== END 2023-09-21 02:17 | disposition home or self-care (01) ==
LOC: JER 00:27
PROC: 3E0F7GC Introduction of Other Therapeutic Substance into Respiratory Tract, Via Natural or Artificial Opening (ICD-10-PCS; principal; 2023-09-21)
DX: R05.1 Acute cough (principal); R06.2 Wheezing; Z20.822 Contact with and (suspected) exposure to COVID-19
CPT/HCPCS: 0241U-QW; 99283-25; J1100

== ENCOUNTER 2023-12-09 18:16 | Emergency (ER) | payer OTHER ==
[2023-12-09 18:24] VITALS: BMI 29.2
[2023-12-09] MEDS ORDERED: ONDANSETRON 4 MG/2 ML VIAL ONE (20:25)
[2023-12-09] MEDS ORDERED: ACETAMINOPHEN INJECTION 100 ML IVPB ONE (20:25)
[2023-12-09] MEDS ORDERED: FAMOTIDINE 20 MG/50 ML IVPB 20 MG/50 ML MG IVPB ONE (20:25)
[2023-12-09] MEDS: ACETAMINOPHEN 1000 MG/100 ML BAG IVPB ONE (20:49)
[2023-12-09] MEDS: FAMOTIDINE 20 MG/50 ML IVPB 20 MG/50 ML MG IVPB ONE (20:49)
[2023-12-09] MEDS: ONDANSETRON 4 MG/2 ML VIAL IVPUSH ONE (20:49)
[2023-12-09 20:56] LABS: BASO % 0.8 % (0-2.0); EOS % 3.3 % (0-4.5); HEMATOCRIT 41.3 % (32.4-45.2); HEMOGLOBIN 14.3 GM/dL (10.7-15.3); LYMPH % 38.1 % (8-40); MCH 33.1 pg (25.7-33.7); MCHC 34.7 g/dl (32.0-36.0); MEAN CELL VOLUME 95.4 fl (80-96); MEAN PLT VOLUME 8.9 fl (7.5-11.1); MONO % 6.8 % (3.8-10.2); PLATELET COUNT 236 10^3/uL (134-434); RBC 4.33 M/mm3 (3.60-5.2); RDW 13.3 % (11.6-15.6); WHITE BLOOD COUNT 8.1 K/mm3 (4.0-10.0)
[2023-12-09 20:58] LABS: PH,URINE 5.5 (5.0-8.0); URINE APPEARANCE CLEAR; URINE BILIRUBIN NEGATIVE (NEGATIVE); URINE COLOR YELLOW; URINE GLUCOSE (UA) NEGATIVE (NEGATIVE); URINE KETONE TRACE (NEGATIVE); URINE LEUK ESTERASE NEGATIVE (NEGATIVE); URINE NITRITE NEGATIVE (NEGATIVE); URINE PROTEIN NEGATIVE (NEGATIVE); URINE UROBILINOGEN 0.2 mg/dL (0.2-1.0)
[2023-12-09 21:03] LABS: INR 0.92 (0.83-1.09); PROTHROMBIN TIME (PATIENT) 10.4 SEC (9.7-13.0)
[2023-12-09 21:06] LABS: ACTIVATED PTT 29.8 SECONDS (25.2-36.5)
[2023-12-09 21:18] LABS: CALCIUM 9.2 mg/dL (8.5-10.1)
[2023-12-09 21:19] LABS: ALBUMIN 3.8 g/dl (3.4-5.0); BLOOD UREA NITROGEN 9.1 mg/dL (7-18)
[2023-12-09 21:22] LABS: CREATININE 0.8 mg/dL (0.55-1.3)
[2023-12-09 21:23] LABS: BILIRUBIN,TOTAL 0.2 mg/dL (0.2-1); TOT PROT 7.1 g/dl (6.4-8.2)
[2023-12-09] MEDS: LACTATED RINGERS SOLUTION 1000 ML INFUS.BAG IV ONE (21:41)
[2023-12-09] MEDS ORDERED: morphine SULFATE 4 MG/ML VIAL ONE (22:41)
[2023-12-09] MEDS: morphine SULFATE 4 MG/ML VIAL IVPUSH ONE (22:59)
[2023-12-09] MEDS: DICYCLOMINE HCL 20 MG/2 ML AMPUL IM ONE (23:37)
[2023-12-09] MEDS ORDERED: DICYCLOMINE HCL 10 MG CAPSULE ONE (23:38)
[2023-12-09] MEDS ORDERED: MAGNESIUM CITRATE 300 ML BOTTLE ONE (23:38)
[2023-12-09] MEDS: DICYCLOMINE HCL 20 MG TABLET PO ONE (23:43)
[2023-12-09] MEDS: MAGNESIUM CITRATE 300 ML BOTTLE PO ONE (23:43)
[2023-12-10 00:29] VITALS: BP 129/76; PULSE 84; RESP 17; TEMP 97.6
== END 2023-12-10 00:31 | disposition home or self-care (01) ==
LOC: JER 18:16
PROC: 3E033GC Introduction of Other Therapeutic Substance into Peripheral Vein, Percutaneous Approach (ICD-10-PCS; principal; 2023-12-09)
PROC: 3E033NZ Introduction of Analgesics, Hypnotics, Sedatives into Peripheral Vein, Percutaneous Approach (ICD-10-PCS; 2023-12-09)
PROC: 3E033NZ Introduction of Analgesics, Hypnotics, Sedatives into Peripheral Vein, Percutaneous Approach (ICD-10-PCS; 2023-12-09)
PROC: 3E033GC Introduction of Other Therapeutic Substance into Peripheral Vein, Percutaneous Approach (ICD-10-PCS; 2023-12-09)
DX: K59.00 Constipation, unspecified (principal); R10.33 Periumbilical pain; R10.13 Epigastric pain; R11.0 Nausea; R00.0 Tachycardia, unspecified
CPT/HCPCS: 36415; 74177-TC; 80053; 81003; 83605; 83690; 84703; 85025; 85610; 85730; 86850; 86900; 86901; 87086; 99285-25; J0131; Q9967

== ENCOUNTER 2024-02-20 18:31 | Emergency (ER) | payer OTHER ==
[2024-02-20 18:41] VITALS: BP 134/95; PULSE 120; RESP 18; BMI 26.4
[2024-02-20 19:21] VITALS: TEMP 101.9
[2024-02-20] MEDS ORDERED: ACETAMINOPHEN 325 MG TABLET (FP) ONE (20:03)
[2024-02-20 20:23] LABS: VENOUS BASE EXCESS 0.4 mmol/L (-2-2); VENOUS O2 SATURATION 92.8 % (70-80); VENOUS PCO2 32.7 mmHg (38-52); VENOUS PH 7.47 (7.310-7.410)
[2024-02-20 20:27] LABS: BASO % 0.3 % (0-2.0); EOS % 0.2 % (0-4.5); HEMATOCRIT 41.4 % (32.4-45.2); HEMOGLOBIN 14.3 GM/dL (10.7-15.3); MCH 32.8 pg (25.7-33.7); MCHC 34.5 g/dl (32.0-36.0); MEAN PLT VOLUME 8.8 fl (7.5-11.1); MONO % 7.5 % (3.8-10.2); PLATELET COUNT 260 10^3/uL (134-434); RBC 4.36 M/mm3 (3.60-5.2); RDW 13.2 % (11.6-15.6); WHITE BLOOD COUNT 10.3 K/mm3 (4.0-10.0)
[2024-02-20] MEDS: SODIUM CHLORIDE 0.9% 500 ML INFUS.BAG IV ONE (20:27)
[2024-02-20] MEDS: ACETAMINOPHEN 325 MG TABLET (FP) PO ONE (20:27)
[2024-02-20 20:44] LABS: POTASSIUM 3.8 mmol/L (3.5-5.1)
[2024-02-20 20:46] LABS: CALCIUM 9.5 mg/dL (8.5-10.1); EPI CELLS >36 /uL (0-25.1); HYALINE CASTS 88 /uL (0-3.1); URINE APPEARANCE CLEAR; URINE BACTERIA 0 /uL (0-1359); URINE BILIRUBIN NEGATIVE (NEGATIVE); URINE COLOR ORANGE; URINE GLUCOSE (UA) NEGATIVE (NEGATIVE); URINE KETONE NEGATIVE (NEGATIVE); URINE LEUK ESTERASE NEGATIVE (NEGATIVE); URINE NITRITE NEGATIVE (NEGATIVE); URINE PROTEIN 2+ (NEGATIVE); URINE UROBILINOGEN 0.2 mg/dL (0.2-1.0)
[2024-02-20 20:47] LABS: BLOOD UREA NITROGEN 6.1 mg/dL (7-18)
[2024-02-20 20:50] LABS: CREATININE 0.7 mg/dL (0.55-1.3)
[2024-02-20 20:51] LABS: BILIRUBIN,TOTAL 0.4 mg/dL (0.2-1); TOT PROT 7.3 g/dl (6.4-8.2)
[2024-02-20 21:04] LABS: LACTIC ACID 2.1 mmol/L (0.4-2.0)
[2024-02-20] MEDS ORDERED: KETOROLAC TROMETHAMINE 30 MG/1 ML VIAL ONE (21:25)
[2024-02-20] MEDS: KETOROLAC TROMETHAMINE 30 MG/1 ML VIAL IM ONE (21:36)
[2024-02-20 21:53] LABS: URINE RBC 41032.1 /uL (0-23.9); URINE WBC 0 /uL (0-25.8)
== END 2024-02-20 21:50 | disposition left against medical advice (07) ==
LOC: JER 18:31
DX: R55 Syncope and collapse (principal); R50.9 Fever, unspecified; E87.20 Acidosis, unspecified; M79.10 Myalgia, unspecified site; Z20.822 Contact with and (suspected) exposure to COVID-19
CPT/HCPCS: 0241U-QW; 36415; 71045-TC-FY; 80053; 81003; 82803; 83605; 84484; 84703; 85025; 87086; 93005; 93010; 99285-25